=== PATIENT | female | born 1950 | race Caucasian/White ===

== ENCOUNTER 2016-09-12 20:46 | Inpatient (IN) | payer BC, MEDICARE ==
--- NOTE | ~2016-09-12 | CR72 ---
[facility] A Service of [facility] & [facility] RADIOLOGY TEXT RESULTS PATIENT: MICHI AGUIRRE LOCATION: [facility]ICCU2- : 50 UNIT #: [id number] AGE: [address]: Safia Caballero MD SEX: F ORDER DR: [id number] [facility] [address] [place], [place] [address] [id number] I MR#: [id number] Acc #: [id number] NAME: MICHI AGUIRRE : 1950 SEX: F STUDY DATE/TIME: 09/12/2016 18:28 UNIT: CEDOF ROOM: [id number] STUDY DESCRIPTION: CR Chest Single View Portable Attending Physician: Safia Caballero M.D. Ordering Physician: Dipti Yoon M.D. Primary Care Physician: Primary Care Physician No MEDICAL IMAGING REPORT This report is preliminary unless electronic signature is present PROCEDURE Portable chest, 09/12/2016 HISTORY Shortness of air for 1 week. FINDINGS Moderate cardiac enlargement. Probable calcified mitral annulus. Mild mid-right thoracic curve. Low lung volumes. No airspace infiltrates or pleural effusions. IMPRESSION Cardiac enlargement. No evidence of active disease. Dictated by... Jarrod Barros M.D. THIS IS AN ELECTRONICALLY VERIFIED REPORT Jarrod Barros M.D. at 09/12/2016 11:43 PM DFL/greyson TD: 09/12/2016 22:24 JOB #: [id number] MEDICAL IMAGING REPORT COPY
--- NOTE | ~2016-09-12 | A ---
[facility] Nutrition Therapy DATE: 09/13/16 Patient: MICHI AGUIRRE Physician: JOSE DE JESUS [facility] Room/Bed: [address], Zip: [place] [address] Admit Date: 09/12/16 Date of : [birth year] Height: 5 8 Weight: 317 144 NUTRITIONAL ASSESSMENT: REASON: Pt seen for NPO status in ICU 65 yo female admitted for hypotension, hypothermia, sepsis, EJ PMH: HTN, hypothyroid, HLD, depression Anthropometrics: Ht: 68" Wt: 143.5 kg BMI: 48.1 Labs: Na+ 147 K+ 3.3 Cl- 115 Gluc 178 BUN 154 Creat 5.2 Ca++ 8.3 Alb 2.3 AST 106 ALT 50 GFR 8.8 Meds: D5%, levophed, propofol @ 21 mL/hr, synthroid (IV), fentanyl, sodium bicarbonate, pepcid I/O & Bowel function: 2704/123, last BM Skin Integrity: Excoriation to buttocks and periarea Rash to abdominal folds and perineum Edema: 2+ BLE 1+ BUE Generalized Estimated Nutrition Needs: 8101-2176 kcals (11-14 kcals/kg ABW) 95-127 grams protein (1.5-2.0 grams/kg IBW) Assessment: Chart reviewed, events noted. Pt is intubated and sedated in the ICU. EJ and dehydration noted. Propofol is providing an additional 554 kcals from lipids at this time. Pt presents morbidly obese with a BMI of 48.1. No plans for nutrition support at this time. No family is in room to provide nutritional history. RD will provide enteral nutrition recommendations below. Dx: Inadequate protein-energy intake RT clinical condition AEB NPO status, intubated. Intervention: 1. Enteral nutrition once feasible Monitoring, Evaluation and Goals: 1. Enteral nutrition; provide >80% goal volume x 24 hrs [facility] Nutrition Therapy DATE: 09/13/16 Patient: MICHI AGUIRRE Physician: JOSE DE JESUS Address: [address] [facility] Room/Bed: [address], Zip: [place] [address] Admit Date: 09/12/16 Date of : [birth year] Height: 5 8 Weight: 317 144 2. Labs; WNL 3. Weight; prevent unintentional weight loss, promote gradual weight loss once medically feasible 4. Skin; prevent breakdown 5. GI; promote bowel regularity Recommendations: 1. Once medically feasible, would obtain enteral access and initiate enteral nutrition with Jevity 1.5 @ 20 mL/hr. Incresae by 10 mL q 8 hrs as tolerated to indicated goal below: WHILE THE PT IS RECEIVING PROPOFOL: -Increase Jevity 1.5 to 35 mL/hr + 30 mL Prostat TID to provide: 2114 kcals/ 99 grams protein/ 638 mL free H20 WHEN THE PT IS NO LONGER RECEIVING PROPOFOL: -Increase Jevity 1.5 to 55 mL/hr + 30 mL Prostat once daily to provide: 2080 kcals/ 99 grams protein/ 1003 mL free H20 Add free H20 flushes per MD orders Pt is at moderate-severe nutritional risk. RD will follow hospital course. Respectfully, TEOFILO PARIKH RD, LD [employer] [facility] cc: client file
--- NOTE | ~2016-09-12 | CR72 ---
[facility] A Service of [facility] & [facility] RADIOLOGY TEXT RESULTS PATIENT: MICHI AGUIRRE LOCATION: [address] : [birth year] UNIT #: [id number] AGE: [address]: Chad Pineda MD SEX: F ORDER DR: [id number] [facility] [address] [facility]. [place], [place] [address] [id number] I MR#: [id number] Acc #: [id number] NAME: MICHI AGUIRRE : 1950 SEX: F STUDY DATE/TIME: 09/15/2016 02:48 UNIT: [facility] ROOM: [facility] STUDY DESCRIPTION: CR Chest Single View Portable Attending Physician: Chad Pineda M.D. Ordering Physician: Chad Pineda M.D. Primary Care Physician: Primary Care Physician No MEDICAL IMAGING REPORT This report is preliminary unless electronic signature is present EXAM Portable chest 09/15 at 0248 hours INDICATIONS Dehydration. Ventilator patient. Hypotension. FINDINGS AP portable views of the chest are compared with 09/14/2016. Endotracheal tube and right IJ line remain in good position. The heart is enlarged but stable. Lung volumes remain low. There is continued infiltrate or atelectasis in the bases, unchanged. No pneumothorax. Dictated by... Amadeo Toro Jr., M.D. THIS IS AN ELECTRONICALLY VERIFIED REPORT Amadeo Toro Jr., M.D. at 09/15/2016 3:56 PM HERMINIA/raghavendra TD: 09/15/2016 06:29 JOB #: [id number] MEDICAL IMAGING REPORT COPY
--- NOTE | ~2016-09-12 | CR72 ---
[facility] A Service of [facility] & [facility] RADIOLOGY TEXT RESULTS PATIENT: MICHI AGUIRRE LOCATION: [address]- : [birth year] UNIT #: [id number] AGE: [address]: Chad Pineda MD SEX: F ORDER DR: [id number] [facility] [address] [place], [place] [address] [id number] I MR#: [id number] Acc #: [id number] NAME: MICHI AGUIRRE : 1950 SEX: F STUDY DATE/TIME: 09/14/2016 6:22 [facility]: [facility] STUDY DESCRIPTION: CR Chest Single View Portable Attending Physician: Chad Pineda M.D. Ordering Physician: Gurjit Tierney M.D. Primary Care Physician: No Primary Care Physician MEDICAL IMAGING REPORT This report is preliminary unless electronic signature is present EXAM Frontal chest, 09/14/2016. INDICATION 65-year-old female with respiratory failure, intubation, dehydration, shortness of air, ventilator patient. Hypothermia. Symptoms for 2 days. Acute renal injury. Down for unknown amount of time. Hypertension. TECHNIQUE Frontal chest compared with 09/13/2016. FINDINGS ET tube tip in good position above the lisa. Enteric tube tip can be followed to the GE junction, but no further due to technical factors. Central line from a right neck approach unchanged. The patient is rotated to the right. Cardiac silhouette enlarged. Aorta tortuous and ectatic and unchanged. Patchy interstitial and alveolar opacities in the mid and lower lung zone on the left persist. Interval improvement of opacities in the upper lung zone on the left. There is some faint atelectasis or less likely infiltrate in the right lung base. No distinct pneumothorax. IMPRESSION Tubes and lines in satisfactory position to the extent visualized. No pneumothorax. Perhaps persistent cardiomegaly. Decrease in opacities in the mid and upper lung zone on the left. No new consolidation. Size limited and rotated study. Dictated by... Maykel Samuel M.D. THIS IS AN ELECTRONICALLY VERIFIED REPORT ST[facility]. [facility] A Service of [facility] & [facility] & [facility] RADIOLOGY TEXT RESULTS PATIENT: MICHI AGUIRRE LOCATION: [facility]- : [birth year] UNIT #: [id number] AGE: [address]: Chad Pineda MD SEX: F ORDER DR: Maykel Samuel M.D. at 09/14/2016 5:45 PM KORINA/jason TD: 09/14/2016 11:52 JOB #: [id number] MEDICAL IMAGING REPORT COPY
--- NOTE | ~2016-09-12 | CR72 ---
[facility] A Service of [facility] & [facility] RADIOLOGY TEXT RESULTS PATIENT: MICHI AGUIRRE LOCATION: [address] : [birth year] UNIT #: [id number] AGE: [address]: Chad Pineda MD SEX: F ORDER DR: [id number] [facility] [address] [place], [place] [address] [id number] I MR#: [id number] Acc #: [id number] NAME: MICHI AGUIRRE : 1950 SEX: F STUDY DATE/TIME: 09/13/2016 02:32 UNIT: [facility] ROOM: [facility] STUDY DESCRIPTION: CR Chest Single View Portable Attending Physician: Safia Caballero M.D. Ordering Physician: Safia Caballero M.D. Primary Care Physician: Primary Care Physician No MEDICAL IMAGING REPORT This report is preliminary unless electronic signature is present EXAM Portable chest 09/13 02:32 INDICATIONS Shortness of air and hypotension with hyperthermia for 2 days. FINDINGS AP portable chest compared to 09/12/2016. Cardiomegaly is stable. There is some developing infiltrate or atelectasis in the left lung base and perhaps in the right upper lobe. Continued follow up recommended. No pneumothorax. Dictated by... Amadeo Toro Jr., M.D. THIS IS AN ELECTRONICALLY VERIFIED REPORT Amadeo Toro Jr., M.D. at 09/13/2016 9:59 PM HERMINIA/raghavendra TD: 09/13/2016 07:33 JOB #: [id number] MEDICAL IMAGING REPORT COPY
--- NOTE | ~2016-09-12 | OR ---
Unit #: [id number] #: [id number] Patient: MICHI AUGIRRE [id number] [address] [place], [place] [address] [id number] I MR#: [id number] NAME: MICHI AGUIRRE ROOM: [facility] Date of Procedure: 09/29/2016 Admission Date: 09/12/2016 Surgeon: Dex Bajwa M.D. : 1950 Attending Physician: Chad Pineda M.D. OPERATIVE REPORT JOB NOTE: CC: [facility] PREOPERATIVE DIAGNOSES 1. Heme-positive stools. 2. Anemia. POSTOPERATIVE DIAGNOSES 1. Heme-positive stools. 2. Anemia. PROCEDURES PERFORMED 1. Esophagogastroduodenoscopy. 2. Colonoscopy to cecum. 3. Biopsy of descending colon. ANESTHESIA Monitored anesthesia care. FINDINGS The patient was found to have mild distal esophagitis and small hiatal hernia. On colonoscopy, the patient was found to have some scattered sigmoid diverticula and some resolving mild to moderate colitis of the splenic flexure and descending colon. COMPLICATIONS None apparent. CONDITION The patient tolerated the procedure well. INDICATIONS FOR PROCEDURE The patient is a 65-year-old female, who presents at this time for evaluation of Hemoccult-positive stools and anemia. DESCRIPTION OF PROCEDURE After obtaining informed consent from the patient's [id number]-[id number] and sister, the patient was brought to the endoscopy suite. After adequate monitored anesthesia care, had the endoscope placed through the mouth into the upper esophagus under direct vision. It was advanced to the second portion of the duodenum without difficulty with the lumen always in view. The duodenum was within normal limits as was the duodenal bulb. The pylorus opened normally. The antrum appeared normal. On retroflexion Unit #: [id number] #: [id number] Patient: MICHI AGUIRRE back to the GE junction, no abnormalities were seen in the proximal third, middle third, or incisura. The patient was found to have a small hiatal hernia. On pulling back above the GE junction, there was some mild distal esophagitis, but no stenosis, stricture, or neoplasm seen. The remaining portion of the esophagus was within normal limits. Laryngeal structures were grossly normal as viewed from above. At this point in time, the colonoscope was placed through the anus and slowly advanced to the level of the cecum without difficulty with the lumen always in view. The cecum was normal as was the ileocecal valve. The ascending colon was normal as was the hepatic flexure and transverse colon. The area of the splenic flexure and descending colon had some mild to moderate colitis. It appeared to be resolving. Other than this, there was no other abnormality seen in the splenic flexure and descending colon. In the distal descending colon and sigmoid colon, there was some scattered diverticula, but no diverticulitis. The rectosigmoid and rectum were all within normal limits. On retroflexing in the rectum to the anorectal junction, the patient was found to have no significant abnormality. The scope was removed without difficulty. The patient tolerated the procedure well and went from the endoscopy suite to recovery area in stable condition. RECOMMENDATIONS Resume preop orders and medications. We have contacted Dr. Pineda given the results. We left a voicemail with the sister, Ms. Davis. The patient will most likely need a diverting colostomy at some point to protect the wound. Dictated by... Yuridia Lares/seamus TD: 09/29/2016 22:52 JOB #: [id number] CC: Jose Cardona M.D. [facility] Charlene Quezada M.D. OPERATIVE REPORT X Dex Bajwa MD X PROCEDURE OPERATIVE NOTE
--- NOTE | ~2016-09-12 | CR72 ---
[facility] A Service of [facility] & [facility] & [facility] RADIOLOGY TEXT RESULTS PATIENT: MICHI AGUIRRE LOCATION: [address] : [birth year] UNIT #: [id number] AGE: [address]: Chad Pineda MD SEX: F ORDER DR: [id number] [facility] [address] [place], [place] [address] [id number] I MR#: [id number] Acc #: [id number] NAME: MICHI AGUIRRE : 1950 SEX: F STUDY DATE/TIME: 09/16/2016 05:23 UNIT: [facility] ROOM: [facility] STUDY DESCRIPTION: CR Chest Single View Portable Attending Physician: Chad Pineda M.D. Ordering Physician: Gurjit Tierney M.D. Primary Care Physician: Primary Care Physician No MEDICAL IMAGING REPORT This report is preliminary unless electronic signature is present EXAM Portable chest, 09/16 at 05:23 hours INDICATION Shortness of air. Ventilator patient. FINDINGS AP portable chest is compared 09/15/2016. ET tube and right IJ line are in good position. Cardiomegaly and vascular congestion are again seen. There is persistent infiltrate or atelectasis in the bases that appears stable. There are also probably small effusions bilaterally. No pneumothorax. Dictated by... Amadeo Toro Jr., M.D. THIS IS AN ELECTRONICALLY VERIFIED REPORT Amadeo Toro Jr., M.D. at 09/17/2016 6:04 AM HERMINIA/tani TD: 09/16/2016 08:16 JOB #: [id number] MEDICAL IMAGING REPORT COPY
--- NOTE | ~2016-09-12 | US67 ---
[facility] A Service of [facility] & [facility] RADIOLOGY TEXT RESULTS PATIENT: MICHI AGUIRRE LOCATION: [address]- : [birth year] UNIT #: [id number] AGE: [address]: Chad Pineda MD SEX: F ORDER DR: [id number] [facility] [address] [facility] [place], [place] [address] [id number] I MR#: [id number] Acc #: [id number] NAME: MICHI AGUIRRE : 1950 SEX: F STUDY DATE/TIME: 09/19/2016 9:20 UNIT: [facility] ROOM: [facility] STUDY DESCRIPTION: Gallbladder Attending Physician: Chad Pineda M.D. Ordering Physician: Chad Pineda M.D. MEDICAL IMAGING REPORT This report is preliminary unless electronic signature is present EXAM Ultrasound abdomen, limited, 09/19/2016. HISTORY 65-year-old female hospital inpatient with elevated liver enzymes. Patient on ventilator. TECHNIQUE Contreras-scale ultrasound imaging of the right upper abdomen. FINDINGS The examination is limited by ultrasound attenuation related to patient body habitus and upper abdominal bowel gas. The gallbladder is filled with multiple large gallstones as well as dense biliary sludge. The gallbladder is non-distended. There is no adjacent fluid collection or visible gallbladder wall thickening. The extrahepatic bile duct is moderately dilated measuring up to 1.3 cm, but there is no visible intrahepatic bile duct dilatation. Echodense hepatic parenchyma suggests potential diffuse hepatic steatosis. No ascites in the right upper abdomen. Pancreas is obscured by bowel gas. Right kidney is negative with no hydronephrosis. IMPRESSION 1. The gallbladder is completely filled with multiple large shadowing gallstones and dense biliary sludge. The gallbladder is non-distended, and there is no adjacent fluid collection or visible wall thickening. 2. Dilatation of the extrahepatic bile duct to 1.3 cm. Distal bile duct and pancreas are obscured by overlying bowel gas. There is no intrahepatic bile duct dilatation. Correlate for laboratory evidence of biliary obstruction. 3. Echodense hepatic parenchyma suggesting diffuse hepatic steatosis. [facility] A Service of [facility] & [facility] RADIOLOGY TEXT RESULTS PATIENT: MICHI AGUIRRE LOCATION: [facility]- : [birth year] UNIT #: [id number] AGE: [address]: Chad Pineda MD SEX: F ORDER DR: Dictated by... Jw Leon M.D. THIS IS AN ELECTRONICALLY VERIFIED REPORT Jw Leon M.D. at 09/20/2016 8:39 AM MARI/anthony TD: 09/19/2016 17:15 JOB #: [id number] MEDICAL IMAGING REPORT COPY
--- NOTE | ~2016-09-12 | EKG ---
PATIENT: MICHI AGUIRRE UNIT #: [id number] Ventricular Rate: 118 BPM Atrial Rate: 131 BPM QRS Duration: 100 ms Q-T Interval: 294 ms QTC Calculation(Bezet): 412 ms Calculated R Wishon: 17 degrees Calculated T Wishon: 178 degrees Diagnosis Line: Atrial fibrillation with rapid ventricular Diagnosis Line: response Diagnosis Line: Nonspecific T wave abnormality Diagnosis Line: Abnormal ECG Diagnosis Line: When compared with ECG of 14-SEP-2016 06:30, Diagnosis Line: Vent. rate has increased BY 43 BPM Diagnosis Line: Confirmed by IVÁN ESTES MD ([id number]) on Diagnosis Line: 09/19/2016 10:55:19 PM INTERPRETING MD: KISHA
--- NOTE | ~2016-09-12 | CO ---
Unit #: [id number] #: [id number] Patient: MICHI AGUIRRE [id number] [facility] [place], [place] [address] [id number] I MR#: [id number] NAME: MICHI AGUIRRE ROOM: [facility] Age: 65 Sex: F Admission Date: 09/12/2016 : 1950 Attending Physician: Chad Pineda M.D. Primary Care Physician: [facility] Primary Care Physician Consultation Date: 09/18/2016 CONSULTATION REPORT REASON FOR CONSULTATION Leukocytosis and failure to thrive. HISTORY OF PRESENT ILLNESS This is a 65-year-old female that is unable to give any medical history as she is currently on a ventilator. The patient was found down by her family members with significant confusion. The patient was brought to the emergency room where she was told by the EMS staff that she was noted to be in urine and feces laying correction on the bed. Per the family, at the bedside, she also had a sewer line photo inspector rupture in her basement. The patient was acidotic. She ended up being placed on the ventilator. She was also hypotensive and now remains on pressor support. The patient also had some superficial wounds on her backside and is status post debridement. The patient, however, fails to improved as suspected and also developed some leukocytosis over the evening and ID was asked to evaluate for further management. The patient also was noted to have some elevated creatinine and some rhabdomyolysis with elevated lactic acid which is being managed by the admitting teams. The patient has been maintained on Zosyn, Flagyl and Zyvox. PAST MEDICAL HISTORY Hypothyroidism, hyperlipidemia, hypertension and degenerative joint disease. I am unaware if she has a history of diabetes. PAST SURGICAL HISTORY Unknown. SOCIAL HISTORY The patient lives alone and, per the family, she is somewhat recluse. She has no evidence per their report of any alcohol or tobacco abuse. It is noted in her H and P that there were beer cans found near her when the family found her down. ALLERGIES None. MEDICATIONS As previously stated: 1. Zosyn. 2. Flagyl. 3. Zyvox. 4. Levophed drip. For other medications, please refer to patient's MAR. Unit #: [id number] #: [id number] Patient: MICHI AGUIRRE REVIEW OF SYSTEMS Unable to obtain as the patient is currently on the ventilator. PHYSICAL EXAMINATION GENERAL APPEARANCE: This is an obese female who remains on the ventilator. Her pupils are sluggish. VITAL SIGNS: Temperature 97.7 with a T-max of 99.0. Pulse 123. Blood pressure 112/84. Respiratory rate 23. NECK: Supple. CARDIOVASCULAR: S1, S2. Regular rate and rhythm. PULMONARY: Diminished at bases with scarce rhonchi noted. ABDOMEN: Distant bowel sounds seen due to obesity of her abdomen. It is soft and nontender. EXTREMITIES: Dusking of her toes. There is no wound except on her backside which have some packing and appear to have some bleeding in nature. There is a fecal management system in place and an IJ line without any cellulitis. DIAGNOSTIC STUDIES LABORATORY: Creatinine 3.2, BUN 99, sodium 138, potassium 5.3, chloride 111, CO2 18, bilirubin 0.7, AST 193, ALT 195. CK total 1,893 which is improved from 3,123 on admission. Lactic acid was 2.1 which is improved from 4 on admission. Last procalcitonin was 1.41. WBC count 26.1, hemoglobin 8.0, hematocrit 24.3, platelets 192. Urinalysis on admission showed 25 to 50 WBCs with 2+ bacteria, negative nitrites. Blood cultures have all been negative since admission and stool culture is negative for C. diff. IMAGING: Chest x-ray shows shallow lung expansion with atelectasis but, however, clear lungs. IMPRESSION This is a 65-year-old female that was found down by her family members with confusion, noted to have some impending respiratory failure, hypotension, increased lactic acid and CK total as well as some acute kidney injury. The patient now remains on the ventilator with pressors status post pressure wound debridement. The patient has had no positive blood cultures but continues with leukocytosis. At this time, possibilities include developing or nonresolving sepsis, would like to rule out bacteremia as the patient does have lines in place, doubt pneumonia. We will need to rule out UTI. I doubt sacral wound infection; however, we will continue local wound care. We will also need to evaluate her right upper quadrant as she also had some increasing LFTs. At this time, I would recommend to check a repeat procalcitonin level, change her Zosyn to meropenem to cover for multidrug resistant infections with antifungal coverage, check a right upper quadrant ultrasound and repeat a CK total in the a.m. This case will be discussed with Dr. Jared Arias. Thank you for allowing us to participate in the care of this patient. Further recommendations will follow pending patient's clinical course. Dictated by... Jia ArcherPRadhaRRadhaNRadha for Yuridia Otero/berkley Unit #: [id number] #: [id number] Patient: MICHI AGUIRRE TD: 09/18/2016 15:05 JOB #: [id number] CONSULTATION REPORT X X CONSULTATION REPORT
--- NOTE | ~2016-09-12 | DS ---
Unit #: [id number] #: [id number] Patient: MICHI AGUIRRE [id number] [address] [address] [id number] I MR#: [id number] NAME: MICHI AGUIRRE ROOM: 555 Age: 65 Sex: F Admission Date: 09/12/2016 : 1950 Discharge Date: 10/01/2016 Attending Physician: Chad Pineda M.D. Primary Care Physician: No Primary Care Physician DISCHARGE SUMMARY DIAGNOSES ON ADMISSION 1. Acute kidney injury. 2. Dehydration. 3. Hypothermia. DIAGNOSES ON DISCHARGE 1. Hypothermia, resolved. 2. Bilateral buttock decubitus ulcer, status post debridement x2. 3. Acute kidney injury, resolved. 4. Hypothyroidism. 5. Acute rhabdomyolysis, resolved. 6. Atrial fibrillation. 7. Acute left lower extremity deep venous thrombosis. 8. Acute toxic metabolic encephalopathy. 9. Anemia, status post blood transfusion. CONSULTATIONS 1. Dr. Thomas in cardiac consultation. 2. Dr. Bajwa in surgery consultation. 3. Dr. Bautista in neurology consultation. 4. Dr. Barbour in renal consultation. 5. Dr. Arias in ID consultation. PROCEDURE 1. Patient had excisional debridement of left buttock in sacral area decubitus ulcer done. 2. Patient had a colonoscopy done which revealed resolving [id number]-nm-lbetcgxb colitis. 3. Patient had an EGD done which revealed mild distal esophagitis and small hiatal hernia. DIAGNOSTIC STUDIES LABORATORY: Patient's creatinine is 0.6, sodium 137, potassium 3.6. WBC 6, hemoglobin 9, platelet count 264,000. Patient's stool for Hemoccult was positive. HOSPITAL COURSE A 65-year-old patient was admitted at [facility] after she was found down at her home. Details are as per admission H and P. The patient was admitted in ICU and was intubated. Acute respiratory failure: The patient was gradually extubated and is doing much better. Unit #: [id number] #: [id number] Patient: MICHI AGUIRRE Left buttock and sacral decubitus ulcers. The patient underwent thorough debridement twice. Dr. Bajwa has seen patient. Patient's wounds are clean. If patient's wounds do not heal in future, she may need diverting colostomy as per Dr. Bajwa. Anemia: Patient has anemia secondary to bleeding from the decubitus ulcers. At one point, there was also concern of rectal bleeding. She is feeling much better now. Her stool was heme positive. Patient had a colonoscopy and EGD done. Atrial fibrillation: The patient was seen by cardiology in consultation. The patient has been started on Eliquis cautiously. Acute left lower extremity DVT: The patient is on Eliquis. Please make note that if patient develops bleeding, please stop Eliquis as her stools were heme positive and she had history of bleeding from decubitus ulcers. Acute toxic metabolic encephalopathy: The patient had increased confusion which is gradually improving. Today patient is comfortable, is not in any acute distress. PHYSICAL EXAMINATION VITAL SIGNS: Reveal temperature of 98.4, pulse 107 per minute, respiratory rate is 18 per minute, blood pressure is 126/80. GENERAL: Patient is confused to time. RESPIRATORY: Revealed decreased breath sounds bilaterally. There are no wheezes or crackles. HEART: Regular rate and rhythm. S1, S2. ABDOMEN: Soft, nontender. Bowel sounds are present. NEUROLOGIC: The patient is alert to person and place only. SKIN: Warm and dry. EXTREMITIES: Reveal 1+ pedal edema. RECOMMENDATIONS ON DISCHARGE Condition is stable. Activity is as tolerated. MEDICATIONS 1. Eliquis 5 mg p.o. b.i.d. 2. Tylenol 650 mg p.o. q.4 hours p.r.n. for pain. 3. Digoxin 0.125 mg p.o. daily. Kindly, do a digoxin level in one week. 4. Lopressor 50 mg p.o. b.i.d. 5. Bumex 2 mg p.o. daily. 6. Enteric coated aspirin 81 mg p.o. daily. 7. Protonix 40 mg p.o. daily. 8. Synthroid 100 mcg p.o. daily. FOLLOWUP The patient is advised to followup with primary care physician in one week and kindly repeat patient's CBC and BMP in four to five days. DISPOSITION The patient will be transferred to a rehab facility in [place] close to patient's sister. The plan has been discussed in detail with patient's sister, Rosana, who is a cardiology nurse practitioner. All of her questions were answered to her apparent satisfaction. She is aware of patient's overall poor Unit #: [id number] #: [id number] Patient: MICHI AGUIRRE. The patient will need to follow up with a hiv prevention specialist and life enrichment specialist. Please call us if there are any questions regarding this hospitalization. Dictated by... Yuridia Centeno TD: 10/01/2016 10:17 JOB #: [id number] DISCHARGE SUMMARY X Chad Pineda MD X DISCHARGE SUMMARY
--- NOTE | ~2016-09-12 | CT4 ---
[facility] A Service of [facility] & [facility] RADIOLOGY TEXT RESULTS PATIENT: MICHI AGUIRRE LOCATION: [address]- : [birth year] UNIT #: [id number] AGE: [address]: Safia Caballero MD SEX: F ORDER DR: [id number] [facility] [address] [place], [place] [address] [id number] I MR#: [id number] Acc #: [id number] NAME: MICHI AGUIRRE : 1950 SEX: F STUDY DATE/TIME: 09/12/2016 22:56 [facility]: [facility] STUDY DESCRIPTION: CT Abd and Pelv Wo Cont Attending Physician: Safia Caballero M.D. Ordering Physician: Dipti Yoon M.D. Primary Care Physician: Primary Care Physician No MEDICAL IMAGING REPORT This report is preliminary unless electronic signature is present EXAM CT abdomen and pelvis, 09/12/2016 at 22:56 INDICATION Abdominal pain. Patient found down at home today. Patient is currently nonverbal and unable to give history. TECHNIQUE Axial images were obtained through the abdomen and pelvis without contrast. Multiplanar reformats were obtained. No comparison. This CT exam was performed with one or more of the following radiation dose reduction techniques: automatic exposure control, adjustment of mA and/or kV according to patient size, and iterative reconstruction. FINDINGS ABDOMEN: Heart is enlarged. There is mitral annulus calcification, and there is some calcification in the aortic valve as well. No pleural or pericardial effusion is seen. There is some atelectasis in the lung bases. There is some streak artifact from the patient's body habitus as well as her arms. The gallbladder is poorly evaluated. There is nothing to suggest biliary obstruction. No renal or ureteral stones are seen. There is no hydronephrosis. The unenhanced solid organs are grossly normal. No bowel obstruction. Cannot exclude some mild wall thickening in the colon. This may reflect mild colitis or may simply be due to lack of luminal distension. PELVIS: There is a fat-containing umbilical hernia. The appendix is normal. The distal small bowel is normal. There is mild sigmoid diverticulosis. Shafer catheter is decompressing the bladder. The patient has a rectal tube as well. Uterus is atrophic or surgically absent. There is bilateral sacroiliitis. There is degenerative disease in the STS. [facility] A Service of [facility] & [facility] RADIOLOGY TEXT RESULTS PATIENT: MICHI AGUIRRE LOCATION: CICCU2 CICCU2-01 : [birth year] UNIT #: [id number] AGE: [address]: Safia Caballero MD SEX: F ORDER DR: lumbar spine. No fractures are identified. IMPRESSION 1. Technically degraded exam due to body habitus and the lack of contrast. 2. No hydronephrosis is seen on either side and there are no stones. 3. Limited evaluation of the gallbladder. No biliary obstruction. 4. There may be some mild wall thickening in the colon which could indicate a mild degree of colitis. The appendix is normal. There is mild sigmoid diverticulosis. 5. Shafer catheter and rectal tube in place. 6. Fat-containing umbilical hernia. 7. Cardiomegaly with aortic valve calcifications and mitral annulus calcifications. Dictated by... Amadeo Toro Jr., M.D. THIS IS AN ELECTRONICALLY VERIFIED REPORT Amadeo Toro Jr., M.D. at 09/13/2016 6:07 AM HERMINIA/greyson TD: 09/13/2016 04:21 JOB #: [id number] MEDICAL IMAGING REPORT COPY
--- NOTE | ~2016-09-12 | CR72 ---
[facility] A Service of [facility] & [facility] RADIOLOGY TEXT RESULTS PATIENT: MICHI AGUIRRE LOCATION: B 555-01 : [birth year] UNIT #: [id number] AGE: [address]: Chad Pineda MD SEX: F ORDER DR: [id number] [facility] [address] [place], [place] [address] [id number] I MR#: [id number] Acc #: [id number] NAME: MICHI AGUIRRE : 1950 SEX: F STUDY DATE/TIME: 09/23/2016 5:58 UNIT: [facility] ROOM: [facility] STUDY DESCRIPTION: CR Chest Single View Portable Attending Physician: Chad Pineda M.D. Ordering Physician: Gurjit Tierney M.D. Primary Care Physician: Primary Care Physician No MEDICAL IMAGING REPORT This report is preliminary unless electronic signature is present EXAM Portable chest INDICATION Hypotension. Follow up central venous catheter and cardiomegaly. FINDINGS Today's portable view of the chest is compared with yesterday's study. There are low lung volumes. The patient is rotated to the right. There are no definite infiltrates. There is mild cardiomegaly. The central venous catheter is stable. Dictated by... Jan Ferrara M.D. THIS IS AN ELECTRONICALLY VERIFIED REPORT Jan Ferrara M.D. at 09/23/2016 10:06 AM LOR/blake TD: 09/23/2016 08:24 JOB #: [id number] MEDICAL IMAGING REPORT COPY
--- NOTE | ~2016-09-12 | CR72 ---
[facility] A Service of [facility] RADIOLOGY TEXT RESULTS PATIENT: MICHI AGUIRRE LOCATION: [facility] 555-01 : [birth year] UNIT #: [id number] AGE: [address]: Chad Pineda MD SEX: F ORDER DR: [id number] [place] [id number] [facility]. [place], [place] [address] [id number] I MR#: [id number] Acc #: [id number] NAME: MICHI AGUIRRE : 1950 SEX: F STUDY DATE/TIME: 09/22/2016 2:21 UNIT: [facility] ROOM: [facility] STUDY DESCRIPTION: CR Chest Single View Portable Attending Physician: Chad Pineda M.D. Ordering Physician: Gurjit Tierney M.D. Primary Care Physician: No Primary Care Physician MEDICAL IMAGING REPORT This report is preliminary unless electronic signature is present EXAM Portable AP view of the chest. COMPARISON STUDIES September 20, 2015 and September 19, 2015 and September 18, 2016. INDICATION 65-year-old female with hypotension and hypothermia today. FINDINGS AND IMPRESSION There has been removal of the endotracheal tube. Right internal jugular catheter tip terminates in the SVC. Feeding tube has been removed. No evidence of pneumothorax. Evaluation of the lungs is limited by patient rotation. There is likely persistent cardiomegaly and mediastinal widening, likely not appreciably changed from comparison. There may be minimally increased band-like opacities in the left lower lobe favoring atelectasis. Otherwise the lungs appear to be clear, but again evaluation is limited by patient rotation. Skin fold artifact is seen over the left chest. No definite pleural effusion. Dictated by... Emiliano Hansen M.D. THIS IS AN ELECTRONICALLY VERIFIED REPORT Emiliano Hansen M.D. at 09/24/2016 7:39 AM ANISA/jason TD: 09/22/2016 09:31 JOB #: [id number] MEDICAL IMAGING REPORT [facility] A Service of [facility] RADIOLOGY TEXT RESULTS PATIENT: MICHI AGUIRRE LOCATION: C5 555-01 : [birth year] UNIT #: [id number] AGE: [address]: Chad Pineda MD SEX: F ORDER DR: COPY
--- NOTE | ~2016-09-12 | CR72 ---
[facility] A Service of [facility] & [facility] RADIOLOGY TEXT RESULTS PATIENT: MICHI AGUIRRE LOCATION: C5B 555-01 : [birth year] UNIT #: [id number] AGE: [address]: Chad Pineda MD SEX: F ORDER DR: [id number] [facility] [address] [address] [id number] I MR#: [id number] Acc #: [id number] NAME: MICHI AGUIRRE : 1950 SEX: F STUDY DATE/TIME: 09/29/2016 02:55 UNIT: [facility] ROOM: [facility] STUDY DESCRIPTION: CR Chest Single View Portable Attending Physician: Chad Pineda M.D. Ordering Physician: Gurjit Tierney M.D. Primary Care Physician: Primary Care Physician No MEDICAL IMAGING REPORT This report is preliminary unless electronic signature is present EXAM Chest x-ray, 09/29 at 02:55 hours INDICATION Respiratory failure, shortness of air, hypotension. FINDINGS AP portable chest is compared with 09/23/2016. Patient is rotated. A right IJ line tip is in the lower SVC level. The mediastinum remains widened. There is some mild atelectasis or infiltrate at the left base. No pneumothorax. IMPRESSION Cardiomegaly with mild left base atelectasis or infiltrate. No pneumothorax. Dictated by... Amadeo Toro Jr., M.D. THIS IS AN ELECTRONICALLY VERIFIED REPORT Amadeo Toro Jr., M.D. at 09/29/2016 9:17 PM HERMINIA/tani TD: 09/29/2016 10:18 JOB #: [id number] MEDICAL IMAGING REPORT COPY
--- NOTE | ~2016-09-12 | CR71 ---
[facility] A Service of [facility] & [facility] RADIOLOGY TEXT RESULTS PATIENT: MICHI AGUIRRE LOCATION: [address] : [birth year] UNIT #: [id number] AGE: [address]: Chad Pineda MD SEX: F ORDER DR: [id number] [facility] [address] [place], [place] [address] [id number] I MR#: [id number] Acc #: [id number] NAME: MICHI AGUIRRE : 1950 SEX: F STUDY DATE/TIME: 09/18/2016 4:01 UNIT: [facility] ROOM: [facility] STUDY DESCRIPTION: CR Chest Single View Attending Physician: Chad Pineda M.D. Ordering Physician: Gurjit Tierney M.D. MEDICAL IMAGING REPORT This report is preliminary unless electronic signature is present EXAM AP portable chest 09/18/2016. HISTORY Respiratory failure. Patient on ventilator. TECHNIQUE AP portable chest x-ray. FINDINGS Endotracheal tube, right IJ central line and Dobbhoff feeding tube remain in good position. Shallow lung expansion with mild bibasilar atelectasis. The lungs are otherwise clear. Cardiomegaly is stable. IMPRESSION 1. Support devices in good position. 2. Shallow lung expansion with mild bibasilar atelectasis. The lungs are otherwise clear. 3. Stable cardiomegaly. Dictated by... Jw Leon M.D. THIS IS AN ELECTRONICALLY VERIFIED REPORT Jw Leon M.D. at 09/18/2016 3:01 PM MARI/anthony TD: 09/18/2016 09:58 JOB #: [id number] MEDICAL IMAGING REPORT COPY
--- NOTE | ~2016-09-12 | CR72 ---
[facility] A Service of [facility] & [facility] RADIOLOGY TEXT RESULTS PATIENT: MICHI AGUIRRE LOCATION: [address] : [birth year] UNIT #: [id number] AGE: [address]: Chad Pineda MD SEX: F ORDER DR: [id number] [facility] [address]. [place], [place] [address] [id number] I MR#: [id number] Acc #: [id number] NAME: MICHI AGUIRRE : 1950 SEX: F STUDY DATE/TIME: 09/20/2016 5:07 UNIT: [facility] ROOM: [facility] STUDY DESCRIPTION: CR Chest Single View Portable Attending Physician: Chad Pineda M.D. Ordering Physician: Rao Ng M.D. Primary Care Physician: Primary Care Physician No MEDICAL IMAGING REPORT This report is preliminary unless electronic signature is present EXAM Portable chest INDICATION Hypotension. Hypothermia. Respiratory failure for the past 8 days. PROCEDURE Frontal view chest COMPARISON 09/19/2016 FINDINGS ET tube is stable. Right IJ catheter is stable. Stable cardiomegaly. Bibasilar atelectasis and pleural fluid. No pneumothorax. IMPRESSION Stable chest. Dictated by... Alex Fairbanks M.D. THIS IS AN ELECTRONICALLY VERIFIED REPORT Alex Fairbanks M.D. at 09/20/2016 4:52 PM Marline TD: 09/20/2016 10:30 JOB #: [id number] MEDICAL IMAGING REPORT COPY
--- NOTE | ~2016-09-12 | CR6 ---
[facility] A Service of [facility] & [facility] RADIOLOGY TEXT RESULTS PATIENT: MICHI AGUIRRE LOCATION: C5B 555-01 : [birth year] UNIT #: [id number] AGE: [address]: Chad Pineda MD SEX: F ORDER DR: [id number] [facility] [address] [place], [place] [address] [id number] I MR#: [id number] Acc #: [id number] NAME: MICHI AGUIRRE : 1950 SEX: F STUDY DATE/TIME: 09/28/2016 UNIT: [facility] ROOM: [facility] STUDY DESCRIPTION: CR Abdomen Portable Sng View Attending Physician: Chad Pineda M.D. Ordering Physician: Chad Pineda M.D. Primary Care Physician: Primary Care Physician No MEDICAL IMAGING REPORT This report is preliminary unless electronic signature is present EXAM KUB 09/28 at 23:40 INDICATIONS Feeding tube placement. FINDINGS Supine view of the abdomen was obtained. Tip of a flexible feeding tube is in the antrum of the stomach. Dictated by... Amadeo Toro Jr., M.D. THIS IS AN ELECTRONICALLY VERIFIED REPORT Amadeo Toro Jr., M.D. at 09/29/2016 9:16 PM HERMINIA/kori TD: 09/29/2016 09:57 JOB #: [id number] MEDICAL IMAGING REPORT COPY
--- NOTE | ~2016-09-12 | CO ---
Unit #: [id number] #: [id number] Patient: MICHI AGUIRRE [id number] [facility] [address] [facility]. [place], [place] [address] [id number] I MR#: [id number] NAME: MICHI AGUIRRE ROOM: [facility] Age: 65 Sex: F Admission Date: 09/12/2016 : 1950 Attending Physician: Chad Pineda M.D. Consultation Date: 09/13/2016 CONSULTATION REPORT JOB NOTE: CC: PRIMARY CARE DOCTOR, [facility]. REASON FOR CONSULTATION Atrial fibrillation, questionable onset and hypotension. HISTORY OF PRESENT ILLNESS This is a 65-year-old white female with a known history reported from family having hypertension, hyperlipidemia, hypothyroidism, depression, is brought into the hospital by EMS after her sister found her in her home very confused, disoriented, weak and lethargic. The patient is lethargic and hard to arouse. The patient was covered in urine and stool and in disarray. According to the sister, who gave a report to the staff that she was last seen by family members about a month ago. Her sister had been trying to call for over a week. She finally went to the home and was unable to get in, and so she called the fire department who broke in. The house was in disarray. She was found on the bed awake, but confused on saying yes to questions. She was covered in urine and stool. There were several beer cans found by the police around the patient's bed. However, the sister did not think she has a history of alcohol abuse. She does have a history of depression. There is no indication by the family or the patient reported any chest pain, pain in her neck, bilateral jaws, shoulders, arms, or elbow. No reported palpitations. In the emergency room, the patient's blood pressure was found to be systolic in the 80s, her temperature was 92.4, she is having significant diarrhea and she required a fecal management system. She was found to be profoundly dehydrated with acute kidney injury, elevated lactic acid level, hypernatremia, metabolic acidosis. She had some decubitus on her right buttock, some superficial abrasions and wounds in the perineal area. She was started on resuscitation with IV fluids and IV fluids contain some bicarb and she had to be started on Levophed for hypotension. Chest x-ray showed cardiomegaly. Head CT showed nothing acute, some mild chronic bilateral ischemic changes and an old right lacunar infarct. EKG showed atrial fibrillation, nonspecific ST-T wave abnormalities. The patient's BUN was 153 with a creatinine of 5.6, eGFR of 8.1, potassium was 3.8, sodium 151. Cardiac enzymes were negative except the CK total of 3892. TSH was found to be 41.07. Alcohol level less than 5. WBCs 21.6. Urinalysis shows 1+ leukocyte esterase, 2+ protein, 1.0 urobilinogen, otherwise unremarkable. Blood cultures obtained and was started on antibiotics as well as IV fluids for resuscitation efforts. Cardiology has been consulted to assist with evaluation and management of her atrial fibrillation and hypertension. Unit #: [id number] #: [id number] Patient: MICHI AGUIRRE PAST MEDICAL HISTORY 1. Hypertension. 2. Hyperlipidemia. 3. Hypothyroidism. 4. Degenerative joint disease. 5. Depression. 6. Questionable alcohol use. 7. Morbid obesity, BMI 48 with weight of 317 pounds. PAST SURGICAL HISTORY Unknown at this time. HOME MEDICATIONS Some thyroid medication, but dosage unavailable, supposed to be taking Synthroid, but according to the sister, there was no medications found at her home at this point. ALLERGIES No known drug allergies. SOCIAL HISTORY The patient lives in her home alone. Reports a remote history of tobacco use and usually was not drinking alcohol, but there was found to have several beer cans around the patient when they found her. No history of illicit drug abuse in the past according to the sister. FAMILY HISTORY Hypothyroidism, otherwise unremarkable according to the sister. REVIEW OF SYSTEMS See details in HPI. PHYSICAL EXAMINATION GENERAL: Ms. Aguirre is a 65-year-old white female. She is very lethargic, but can be aroused, opens her eyes. VITAL SIGNS: On Levophed, blood pressure is 102/75, heart rate 80, respirations 20, temperature 97.5, O2 saturations 100% on 2 L. NECK: Trachea midline. No thyromegaly or lymphadenopathy. Normal carotid upstrokes. No jugular venous distention. HEART: S1, S2. No clicks, murmurs or rubs. LUNGS: Diminished. ABDOMEN: Obese, soft. Positive bowel sounds present. EXTREMITIES: Pedal pulses are palpable. Trace pedal edema. DIAGNOSTIC STUDIES LABORATORY RESULTS: ABGs this morning, pH is 7.309, pCO2 of 38.0, pO2 of 416.0, HCO3 19.3, O2 saturation is 99.9%, FiO2 100%, and on 3 L. glucose is 178, BUN 154, creatinine 5.2, eGFR is 8.8. Sodium was 147, potassium 3.3, chloride 115, CO2 of 18, calcium is 8.3, total protein 6.1, albumin 2.3, bilirubin total 1.3, AST is 106, ALT is 50, alk phos is 60, CK total is 3892. BNP 66. Ammonia level is 29. Lactic acid is 2.1. TSH is 41.07. Free T4 is 0.71. Alcohol level is less than 5. Initial cardiac enzymes; CK-MB is greater than 80, troponin is less than 0.05. Repeat enzymes; CK total is 3892, MB is 119.2, percentage of MB 3.1, troponin 0.05. WBC 21.6, hemoglobin 12.1, hematocrit 38.2, and platelets is 257. Urine tox screen is negative. Urinalysis; 1+ leukocyte esterase, 2+ protein, 1.0 urobilinogen. Stool and blood cultures are pending. Unit #: [id number] #: [id number] Patient: MICHI AGUIRRE IMAGING STUDIES: Chest x-ray shows lower lung volumes with stable cardiomegaly and torturous aorta, mild pulmonary vascular prominence. No definite edema, effusion or pneumothorax. Chest x-ray on 09/13/2016 shows increasing opacities in the left lung may reflect worsening atelectasis or less likely faint infiltrate. No new effusion. She did have a CT of abdomen and pelvis, which showed no hydronephrosis, no biliary obstruction, could be even a degree of colitis and some mild diverticulosis. CT of the head without contrast did not find anything acute. CARDIOVASCULAR STUDIES: EKG shows atrial fibrillation with a ventricular rate of 78 beats per minute and there was some ST-T wave abnormalities in anterolateral leads, left ventricular hypertrophy, poor R-wave progression. IMPRESSION 1. Altered mental status. 2. Questionable acute gastroenteritis. 3. Atrial fibrillation, ?duration onset. 4. Hypotension, on pressors. 5. Acute kidney injury. 6. Hypothyroidism. 7. Hypothermia. 8. Rhabdomyolysis. 9. History of hypertension, hyperlipidemia. 10. Depression. 11. Reformed smoker. 12. Questionable alcohol abuse. 13. Degenerative joint disease. 14. Morbid obesity, BMI is 48, weight is 317 pounds. 15. Questionable nicotine abuse. 16. Questionable alcohol abuse. 17. This patient has cellulitis of the abdominal wall and perineal and buttocks wounds. 18. Hypokalemia. PLAN 1. Cardiology consult to assist with evaluation and management. 2. The patient is on IV fluids and Levophed for resuscitation efforts. She is fairly arousable, but seems to be very lethargic. She is on the sepsis protocol, which is already being followed. We will increase her anticoagulation to 1 mg/kg subcu daily and that is renal dosing. 3. Obtain a 2D echo to evaluate her LV function and valves for comparison. 4. The patient's heart rate is fairly controlled. She is not on any beta-blockers or calcium channel blockers. 5. Nephrology has been consulted for management and treatment of her acute kidney injury. 6. Treatment of probable diarrhea from some type of colitis. Stool cultures are pending. 7. Dr. Schwarz from Psychiatric has made recommendations on wound care. 8. Pulmonology per her wireline supervisor's concern for aspiration. Plans are for patient to have a Dobbhoff tube. 9. The patient's potassium is being supplemented. We will check her electrolytes tomorrow. Dr. Barbour of nephrology has ordered some albumin for four doses and he ordered normal saline 500 mL bolus today. The patient is on IV antibiotics. 10. Increase her anticoagulation to Lovenox 1 mg/kg subcu daily and Unit #: [id number] #: [id number] Patient: MICHI AGUIRRE monitor her CBC closely. 11. Obtain a 2D echo to evaluate LV function and valves. 12. We will try to ask questions to the sister to see if she has ever had any heart issues or had any cardiac workup and we will obtain those records. 13. Further recommendations pending per Dr. Quezada. Thank you very much for allowing us to assist in her care. Dictated by... Saeed Vann/modl TD: 09/14/2016 05:22 JOB #: [id number] CONSULTATION REPORT X Nora Hernandez APRN CONSULTATION REPORT
--- NOTE | ~2016-09-12 | CO ---
Unit #: [id number] #: [id number] Patient: MICHI AGUIRRE [id number] [facility] [address] [facility]. [place], [place] [address] [id number] I MR#: [id number] NAME: MICHI AGUIRRE ROOM: [facility] Age: 65 Sex: F Admission Date: 09/12/2016 : 1950 Attending Physician: Chad Pineda M.D. Primary Care Physician: No Primary Care Physician Consultation Date: 09/14/2016 CONSULTATION REPORT REASON FOR CONSULTATION Decreased level of consciousness. PATIENT IDENTIFICATION This is a 65-year-old white female who was evaluated from ICU-1 at [facility]. SOURCE OF INFORMATION Medical record as the patient is intubated and has some sedation. PROBLEM LIST 1. Acute kidney injury. 2. Dehydration. 3. Hyponatremia. 4. Hypothermia. 5. Hypothyroidism. 6. She was found down and the down time is not known. 7. She does have history of hypertension, hyperlipidemia, and degenerative joint disease. HISTORY OF PRESENT ILLNESS This is a 65-year-old female with chronic hypertension, hypothyroidism, and hyperlipidemia who is private and lives on her own but her family was unable to contact her. There was probably some contact over the phone about a week before she was unable to be contacted, so the family went in there and couldn't get her to open the door, so they called the fire department and broke in. The patient was found in the bed, half on and half off, awake and confused, just mumbling. She was covered in urine and stool. She had a decubitus ulcer. There were several beer cans found on the (1) but I am not sure if there was any alcohol related issue. The patient's admitting diagnoses were the addition of acute kidney injury, hypothermia, and hypotension, sacral perineal decubitus, and excoriation, diarrhea, metabolic acidosis, rhabdomyolysis, atrial fibrillation, acute kidney injury, and hypotension. She is being taken care of. She is still being sedated with sedation medication. Earlier, there was the possibility that she was following commands but lately only responds to painful stimuli. She is obviously nonverbal, so neurology was finally consulted to help. Once she came in, blood pressure was 80s over 50s, temperature 92.4. She has improved some. Temperature is 98.1, pulse 79, respirations 24, blood pressure 101/55. Her labs were abnormal. When she came in, her pH was 7.31, pCO2 was 33, pO2 was 88.6. Her BUN was 153, creatinine was 5.6. Her sodium was 151. Calcium was 9.8. AST was 98, ALT was 58, amylase was 77, lipase was 111. CK was 3128. It has gone up some to 3892. Troponin was 0.05, went up to 0.88. Lactic was 4. TSH was Unit #: [id number] #: [id number] Patient: MICHI AGUIRRE 41.07. Her white count was 18.8. Urinalysis initially did not show much but repeat study showed 25-50 WBCs, 2+ bacteria, leukocyte esterase 2+. Urine drug screen was negative. Alcohol was less than 5. She had a head CT done which was reported as unremarkable. Since admission, no witnessed seizures. Nothing suggesting HABITAT BIOLOGIST infection type picture. Nothing suggesting major stroke but the initial CT was unremarkable. No prior history of epilepsy, migraine, seizures, stroke, or TIA. PAST MEDICAL HISTORY As discussed above. PAST SURGICAL HISTORY Further details not known. ALLERGIES None. HOME MEDICATIONS Synthroid, other than that I do not have any information. FAMILY HISTORY History of hypothyroidism. SOCIAL HISTORY The patient lives alone. Remote history of tobacco use. Nothing suggesting alcohol or drug use. REVIEW OF SYSTEMS Not possible because of the patient's present state. PHYSICAL EXAMINATION VITAL SIGNS: Temperature is 98.1, pulse 79, respiratory rate 24, blood pressure 101/55, O2 saturations are 98%, weight 330 pounds. NEUROLOGIC: The patient is intubated with some sedation. She is obviously nonverbal. She is not following commands. CRANIAL NERVES: I really did not see any good response with visual threats. The pupils are sluggish, reactive, size about 1.5 mm. I did not see any ptosis. I did not see any nystagmus. Extraocular movements are questionable. Sensation on the face and scalp is present. Hearing is questionable. Tongue was midline. I could not visualize the oropharynx or uvula. Head turning was somewhat seen spontaneously. MOTOR: She responds to painful stimuli. She is in restraints. At least 2/5 movement was seen. SENSORY: Responds to pain and seems to grimace. I could not get any reflexes. Toes are moot. GAIT/COODRINATION: Could not be evaluated. DIAGNOSTIC STUDIES Labs and imaging studies reviewed as discussed. IMPRESSION Likely multifactorial toxic and metabolic encephalopathy. PLAN I cannot see if there is any particular primary reason why this all happened. Could it be just plain dehydration and laying down and some Unit #: [id number] #: [id number] Patient: MICHI AGUIRRE sort of infection. Could this be a primary neurologic issue that led to this. There is nothing suggesting seizure or HABITAT BIOLOGIST infection. I would like to repeat CT or MRI and will go from there. Once the sedation is decreased, we can do further evaluation. What if it is a cognitive condition? She has been known to have depression. Does she have dementia or any other primary neurologic Condition. Since we have not seen any evidence she is having seizures, so I would refrain from adding more medications. The focus is airway breathing and circulation and fixing metabolic problems. In the meantime if I find any primary neurologic issues, then that will be evaluated and treated accordingly. Obviously since she was found the way she was, there is nothing I can do for like TPA or intervention dodge, but will do noninvasive testing like MRI and carotid Dopplers and see how things go. I may end up doing EEG and if needed LP would be considered but the primary focus right now is airway breathing and circulation and metabolic management. I will followup and I have discussed the case briefly with the team. I will keep you informed. Call me for any other questions, issues, or concerns. I have also talked briefly to the patient's family. I believe that was her brother. Dictated by... Yuridia Torres/jarrell TD: 09/14/2016 11:07 JOB #: [id number] CONSULTATION REPORT X Beatrice Bautista MD CONSULTATION REPORT
--- NOTE | ~2016-09-12 | EKG ---
PATIENT: MICHI AGUIRRE UNIT #: [id number] Ventricular Rate: 78 BPM Atrial Rate: 357 BPM QRS Duration: 112 ms Q-T Interval: 392 ms QTC Calculation(Bezet): 446 ms Calculated R [place]: 23 degrees Calculated T [place]: -170 degrees Diagnosis Line: Atrial fibrillation Diagnosis Line: Non-specific intra-ventricular conduction delay Diagnosis Line: T wave abnormality, consider inferior ischemia or Diagnosis Line: digitalis effect Diagnosis Line: T wave abnormality, consider anterolateral Diagnosis Line: ischemia or digitalis effect Diagnosis Line: Abnormal ECG Diagnosis Line: When compared with ECG of 12-SEP-2016 18:39, Diagnosis Line: (unconfirmed) Diagnosis Line: T wave inversion now evident in Anterolateral Diagnosis Line: leads Diagnosis Line: QT has shortened Diagnosis Line: Confirmed by IVÁN ESTES MD ([id number]) on Diagnosis Line: 09/13/2016 10:55:06 PM INTERPRETING MD: KISHA
--- NOTE | ~2016-09-12 | FU ---
[facility] Nutrition Therapy DATE: 09/21/16 Patient: MICHI AGUIRRE Physician: JOSE DE JESUS Address: [address] [place] [address] Room/Bed: [address], Zip: [place] [address] Admit Date: 09/12/16 Date of : [birth year] Height: 5 8 Weight: 343 156 NUTRITION MONITORING/FOLLOW-UP: Reason: Enteral nutrition follow-up Anthropometrics: Wt: 156 kg Labs: Glucose 114, BUN 75, AST 78, ALT 84, Mg 1.5, GFR 40.1, Na/K/Phos WNL Meds: Phoslo, Versed, Fentanyl, Phenergan/Zofran, Merrem, Levophed, IV Synthroid I&O's: 3047/6030, last BM 09/20 (diarrhea per FMS) Skin: Excoriation buttocks/lillian area Edema: Generalized-2+ noted Estimated Nutrition Needs: 4207-4586 kcals per day 95-127 g protein per day Fluids consistent with kcal needs or per MD Assessment: Chart reviewed, events noted. Patient opens eyes, moves all extremities, remains on vent at this time. CPAP trials yesterday, likely to wean within 1-2 days. Renal function improving, needs diuretics per RN. MD changed EN from Jevity 1.5 to Nepro at same rate on 09/19 over the weekend, also getting daily Prostat, 5 ml residuals noted, patient tolerating feeds. Unable to determine % intake from pump history at this time as the pump says "holding error." Presume previous nutrition goals met, note weight increase likely 2/2 fluid. Nutrition dx resolved with EN at goal, see new nutrition dx and recs below. Dx: Inadequate protein energy intake r/t clinical condition AEB NPO, intubated - RESOLVED New nutrition Dx: Excessive enteral nutrition infusion r/t formula change AEB current EN regimen providing 2476 kcals (119% estimated kcal needs). Intervention: Decrease Nepro and increase Prostat (See RD recs below) Monitoring, Evaluation and Goals: SOME MET 1. EN to provide 80-100% of estimated nutrition needs. 2. Gradual weight loss towards a healthy BMI range. 3. Labs WNL. Monitor: Per protocol, criteria to determine if above goals met [facility] Nutrition Therapy DATE: 09/21/16 Patient: MICHI AGUIRRE Physician: JOSE DE JESUS Address: [address] [place] [address] Room/Bed: [address], Zip: [place] [address] Admit Date: 09/12/16 Date of : [birth year] Height: 5 8 Weight: 343 156 Recommendations: 1. Please decrease current enteral nutrition rate with Nepro to 40 ml/hr to avoid overfeeding, formula changed over the weekend and is meeting 119% of the patients estimated kcal needs at current rate of 55 ml/hr. Increase Prostat to 30 ml TID instead of just once daily to meet protein needs. This nutrition regimen will provide 2028 kcals, 123 g protein and 701 ml water. Free water flushes per - RD recommends 185 ml q 4 hrs. 2. Monitor lytes- if Phos/K+ remain WNL can change back to Jevity 1.5 goal of 55 ml/hr + daily Prostat. 3. If extubated advance to healthy heart diet per DRIED YEAST SUPERVISOR. Status: Moderate nutrition risk Respectfully, Dona Whitney RD, LD [employer] [facility] cc: client file
--- NOTE | ~2016-09-12 | CR72 ---
[facility] A Service of [facility] RADIOLOGY TEXT RESULTS PATIENT: MICHI AGUIRRE LOCATION: [address] : [birth year] UNIT #: [id number] AGE: [address]: Chad Pineda MD SEX: F ORDER DR: [id number] [facility] [address] [facility] [place], [place] [address] [id number] I MR#: [id number] Acc #: [id number] NAME: MICHI AGUIRRE : 1950 SEX: F STUDY DATE/TIME: 09/19/2016 4:47 UNIT: [facility] ROOM: [facility] STUDY DESCRIPTION: CR Chest Single View Portable Attending Physician: Chad Pineda M.D. Ordering Physician: Rao Ng M.D. Primary Care Physician: Primary Care Physician No MEDICAL IMAGING REPORT This report is preliminary unless electronic signature is present EXAM Portable AP view of the chest COMPARISON September 18, 2016, September 16, 2016, September 15, 2016 INDICATIONS 65-year-old female with respiratory failure since September 12, 2016. Current ventilatory support. FINDINGS/IMPRESSION Feeding tube not traced below the level of the stomach where it passes off the bottom aspect of the image. Endotracheal tube is adequately positioned with the tip 4.6 cm above the lisa. Right internal jugular catheter tip terminates in the lower SVC. No evidence of pneumothorax. There appears to be new small right pleural effusion and there is increasing interstitial prominence throughout the lungs in the setting of cardiomegaly. There is also cephalization of pulmonary vasculature and these findings likely represent mild interstitial edema. Dictated by... Emiliano Hansen M.D. THIS IS AN ELECTRONICALLY VERIFIED REPORT Emiliano Hansen M.D. at 09/22/2016 7:00 AM Jami TD: 09/19/2016 10:44 JOB #: [id number] MEDICAL IMAGING REPORT COPY
--- NOTE | ~2016-09-12 | CR6 ---
[facility] A Service of [facility] RADIOLOGY TEXT RESULTS PATIENT: MICHI AGUIRRE LOCATION: [facility]2 [facility]2 : [birth year] UNIT #: [id number] AGE: [address]: Chad Pineda MD SEX: F ORDER DR: [id number] [facility] [address] [facility]. [place], [place] [address] [id number] I MR#: [id number] Acc #: [id number] NAME: MICHI AGUIRRE : 1950 SEX: F STUDY DATE/TIME: 09/14/2016 6:24 UNIT: [facility]CU2 ROOM: [facility] STUDY DESCRIPTION: CR Abdomen Portable Sng View Attending Physician: Chad Pineda M.D. Ordering Physician: Ed Rush Davis M.D. Primary Care Physician: No Primary Care Physician MEDICAL IMAGING REPORT This report is preliminary unless electronic signature is present EXAM Frontal abdomen, 09/14/2016. INDICATION 65-year-old female with abdominal distension. Abdominal pain symptoms for 2 days. TECHNIQUE Frontal abdomen was performed. COMPARISONS 09/13/2016, 1020 hours FINDINGS Enteric tube tip is at the level of the distal body stomach/gastric antrum. Shafer catheter temperature probe projects over the pelvis. There is degenerative change in the lumbar spine. No new dilated air-filled loops of bowel are seen. Curvilinear air density structure in the left mid abdomen, likely represents loop of small bowel. Air related to the patient's pannus projects over the upper abdomen on both projections. The entire abdomen is not included in the field of view. There is overlying clothing artifact. IMPRESSION 1. Enteric tube tip is at the level of the distal body/gastric antrum of the stomach. 2. No new dilated air-filled loops of bowel are seen. Interval decrease in gaseous distension of the stomach. Dictated by... Maykel Samuel M.D. [facility] A Service [facility] RADIOLOGY TEXT RESULTS PATIENT: MICHI AGUIRRE LOCATION: C[facility]2 C[facility]CU2 : [birth year] UNIT #: [id number] AGE: [address]: Chad Pineda MD SEX: F ORDER DR: THIS IS AN ELECTRONICALLY VERIFIED REPORT Maykel Samuel M.D. at 09/14/2016 5:45 PM KORINA/jason TD: 09/14/2016 11:45 JOB #: [id number] MEDICAL IMAGING REPORT COPY
--- NOTE | ~2016-09-12 | EKG ---
PATIENT: MICHI AGUIRRE UNIT #: [id number] Ventricular Rate: 63 BPM Atrial Rate: 43 BPM QRS Duration: 116 ms Q-T Interval: 536 ms QTC Calculation(Bezet): 548 ms Calculated R [place]: -4 degrees Calculated T [place]: -14 degrees Diagnosis Line: Atrial fibrillation Diagnosis Line: Left ventricular hypertrophy with QRS widening Diagnosis Line: Nonspecific ST and T wave abnormality Diagnosis Line: Prolonged QT Diagnosis Line: Abnormal ECG Diagnosis Line: No previous ECGs available Diagnosis Line: Confirmed by IVÁN ESTES MD ([id number]) on Diagnosis Line: 09/13/2016 10:49:33 PM INTERPRETING MD: KISHA
--- NOTE | ~2016-09-12 | CR7 ---
[facility] A Service of [facility] RADIOLOGY TEXT RESULTS PATIENT: MICHI AGUIRRE LOCATION: C5B 555 : 50 UNIT #: [id number] AGE: [address]: Chad Pineda MD SEX: F ORDER DR: [id number] [facility] [address]. [place], [place] [address] [id number] I MR#: [id number] Acc #: [id number] NAME: MICHI AGUIRRE : 1950 SEX: F STUDY DATE/TIME: 09/28/2016 14:42 UNIT: [facility] ROOM: [facility] STUDY DESCRIPTION: CR Abdomen Single AP View Attending Physician: Chad Pineda M.D. Ordering Physician: Chad Pineda M.D. Primary Care Physician: Primary Care Physician No MEDICAL IMAGING REPORT This report is preliminary unless electronic signature is present EXAM Frontal abdomen, 09/28/2016 INDICATION 65-year-old female with hypothermia and stomach and abdominal pain today. Dobbhoff tube placement. TECHNIQUE Frontal abdomen was performed and compared with 09/14/2016. FINDINGS The patient is rotated to the right. There is a Dobbhoff-type feeding tube present and the tip is below the diaphragm at the level of the gastric fundus/proximal body of the stomach. Shafer catheter temperature probe also noted. There is gaseous distension of small and large bowel. Chronic inferior rib fracture on the left. IMPRESSION The tip of the Dobbhoff tube is at the expected level of the gastric fundus/proximal body stomach. Dictated by... Maykel Samuel M.D. THIS IS AN ELECTRONICALLY VERIFIED REPORT Maykel Samuel M.D. at 09/29/2016 7:36 AM KORINA/greyson TD: 09/28/2016 23:29 JOB #: [id number] [facility] A Service of [facility] RADIOLOGY TEXT RESULTS PATIENT: MICHI AGUIRRE LOCATION: C5B : 50 UNIT #: [id number] AGE: [address]: Chad Pineda MD SEX: F ORDER DR: MEDICAL IMAGING REPORT COPY
--- NOTE | ~2016-09-12 | CR6 ---
[facility] A Service of [facility] RADIOLOGY TEXT RESULTS PATIENT: MICHI AGUIRRE LOCATION: C5B 555-01 : 50 UNIT #: [id number] AGE: [address]: Chad Pineda MD SEX: F ORDER DR: [id number] [facility] [address] [facility]. [place], [place] [address] [id number] I MR#: [id number] Acc #: [id number] NAME: MICHI AGUIRRE : 1950 SEX: F STUDY DATE/TIME: 09/29/2016 02:55 UNIT: [facility] ROOM: [facility] STUDY DESCRIPTION: CR Abdomen Portable Sng View Attending Physician: Chad Pineda M.D. Ordering Physician: Chad Pineda M.D. Primary Care Physician: Primary Care Physician No MEDICAL IMAGING REPORT This report is preliminary unless electronic signature is present EXAM KUB 09/29/2016 at 0255 INDICATIONS Feeding tube placement. FINDINGS Supine view of the abdomen was obtained. Tip of Dobbhoff feeding tube is positioned in the body of the stomach. Dictated by... Amadeo Toro Jr., M.D. THIS IS AN ELECTRONICALLY VERIFIED REPORT Amadeo Toro Jr., M.D. at 09/29/2016 9:16 PM HERMINIA/raghavendra TD: 09/29/2016 10:15 JOB #: [id number] MEDICAL IMAGING REPORT COPY
--- NOTE | ~2016-09-12 | CT71 ---
[facility] A Service of [facility] RADIOLOGY TEXT RESULTS PATIENT: MICHI AGUIRRE LOCATION: CICCU2 CICCU08-25 : 50 UNIT #: [id number] AGE: [address]: Safia Caballero MD SEX: F ORDER DR: [id number] [facility] [address]. [place], [place] [address] [id number] MR#: [id number] Acc #: [id number] NAME: MICHI AGUIRRE : 1950 SEX: F STUDY DATE/TIME: 09/12/2016 20:16 UNIT: [facility] ROOM: [id number] STUDY DESCRIPTION: CT Head Wo Contrast Attending Physician: Safia Caballero M.D. Ordering Physician: Dipti Yoon M.D. Primary Care Physician: Primary Care Physician No MEDICAL IMAGING REPORT This report is preliminary unless electronic signature is present EXAM CT brain without contrast HISTORY Unresponsive for 1 week. Decreased mental status. TECHNIQUE This CT exam was performed with one or more of the following radiation dose reduction techniques: Automatic exposure control, adjustment of mA and/or kV according to patient size, and iterative reconstruction. FINDINGS CT brain without contrast demonstrates mild chronic ischemic changes in the periventricular white matter bilaterally. Small, chronic lacunar infarct in the right lentiform nucleus. No intracranial hemorrhage, mass or edema is identified. Prominent and tortuous basilar artery is likely incidental. IMPRESSION No acute findings. Mild chronic ischemic changes in the deep white matter bilaterally and small chronic lacunar infarct in the right lentiform nucleus. Dictated by... Jarrod Barros M.D. THIS IS AN ELECTRONICALLY VERIFIED REPORT Jarrod Barros M.D. at 09/12/2016 11:45 PM DFL/psc TD: 09/12/2016 23:07 JOB #: [id number] [facility] A Service [facility] RADIOLOGY TEXT RESULTS PATIENT: MICHI AGUIRRE LOCATION: CICCUKarrie CICCU08-25 : 50 UNIT #: [id number] AGE: [address]: Safia Caballero MD SEX: F ORDER DR: MEDICAL IMAGING REPORT COPY
--- NOTE | ~2016-09-12 | FU ---
[facility] Nutrition Therapy DATE: 09/28/16 Patient: MICHI AGUIRRE Physician: JOSE DE JESUS [facility] Room/Bed: [address] [place] [address], Zip: [place] [address] Admit Date: 09/12/16 Date of : 50 Height: 5 8 Weight: 314 142.8 NUTRITION MONITORING/FOLLOW-UP: Reason: Nutrition follow-up Anthropometrics: current wt: 142.8 kg Labs: BUN 30, POC 73-80 Meds: Lactated ringers, PPI, Bumetanide, Synthroid GI: LBM 3/6 (FMS) Skin: Left necrotic buttock/sacral wound Edema generalized-3+ Estimated Nutrition Needs: Increased protein needs Assessment: Chart reviewed, events noted. Patient previously on mechanical soft diet with NTL (09/26) per ACCOUNT DIRECTOR, had wound debridement yesterday, diet clear liquids (nectar thick) today. Patient is awake and responsive but somewhat confused and pauses when answering questions. She is not appropriate for full RD interview at this time. She is also not appropriate for ONS (Ensure clear) at this time due to need to thicken. Previous nutrition goals no longer relevant, nutrition dx resolved, see new diagnosis. Will continue to follow for tolerance of diet advancement and further nutritional needs. Note patient is morbidly obese. Dx: Excessive enteral nutrition infusion r/t formula change AEB current EN regimen providing 2476 kcals (119% estimated needs). - RESOLVED, NO LONGER RELEVANT New nutrition Dx: Inadequate protein energy intake r/t diet not yet advanced AEB clear liquid diet. Intervention: Diet advancement per ACCOUNT DIRECTOR Monitoring, Evaluation and Goals: PREVIOUS GOALS NO LONGER RELEVANT New goals: 1. Tolerance of diet advancement with minimal c/o N/V/D. 2. Improvement in chewing/swallow function. 3. Promote wound healing. Monitor: Per protocol, criteria to determine if above goals met [facility] Nutrition Therapy DATE: 09/28/16 Patient: MICHI AGUIRRE Physician: JOSE DE JESUS Address: [address] [facility] Room/Bed: [address] [place] [address], Zip: [place] [address] Admit Date: 09/12/16 Date of : [birth year] Height: 5 8 Weight: 314 142.8 Recommendations: Advance diet as tolerated per ACCOUNT DIRECTOR. Do not give oral supplements while on clear liquid/nectar thick diet. Once diet advances beyond clear liquids can order Nepro or Magic Cup BID if patient's PO intake is inadequate (both appropriate for nectal thick liquids). She does have increased protein needs related to wound healing requirements. RD will continue to follow Status: Moderate nutrition risk Respectfully, Dona Whitney, ANDREA, LD [facility] Nutrition[facility] cc: client file
--- NOTE | ~2016-09-12 | FU ---
[facility] Nutrition Therapy DATE: 09/16/16 Patient: MICHI AGUIRRE Physician: JOSE DE JESUS Address: [address] [place] [address] Room/Bed: [address], Zip: [place] [address] Admit Date: 09/12/16 Date of : [birth year] Height: 5 8 Weight: 339 153.8 NUTRITION MONITORING/FOLLOW-UP: Reason: Enteral nutrition follow-up Admitting Dx: 65 y/o female admitted with hypotension, hypothermia, sepsis, EJ, dehydration, unresponsive Anthropometrics: Ht: 68", admission wt: 143.5 kg, current wt: 153.8 kg, BMI: 48.1 Labs: Na 147, BUN 99, Creat 2.6, GFR 19.6, Phos 4.7 (09/14), Glucose POC 93 Meds: IV Abx, Pepcid, IV Synthroid I&O's: 9292/2225, last BM 09/15 per FMS Skin: Excoriation buttocks/lillian area, rash abdominal folds/perineum Edema: BLE/BUE 2+, generalized Estimated Nutrition Needs: 8724-2057 kcals per day (11-14 kcals/kg admission wt) 95-127 g protein per day (1.5-2.0 g/kg IBW) Fluids consistent with kcal needs or per MD Current EN regimen: Jevity 1.5 @ 35 ml/hr with Prostat TID (goal with Propofol) Assessment: Chart reviewed, events noted. Patient is currently off the floor in OR for wound debridement, RD unable to check pump history to assess EN goal volume. EN started with Jevity 1.5 on 09/14 @ 10 ml/hr with Prostat as ordered, increased to goal that afternoon (35 ml/hr while on Propofol) and feeds were at goal all day yesterday. Sedation turned off last PM, RD will write new recs and order to update EN order to reflect these recs. RN states the patient will likely be extubated today. Renal function is improving, patient still with hypernatremia. Nutrition dx remains with feeds off at this time, but is resolving. See recs below, will continue to follow. Dx: Inadequate protein energy intake r/t clinical condition AEB NPO, intubation - ACTIVE, WITH IMPROVEMENT Intervention: Increase EN to new goal rate without Propofol, FINANCIAL SERVICES ASSISTANT if extubated Monitoring, Evaluation and Goals: SOME MET 1. EN to provide > 80% goal volume x 24 hours vs tolerance of diet advancement if [facility] Nutrition Therapy DATE: 09/16/16 Patient: MICHI AGUIRRE Physician: JOSE DE JESUS Address: [address] [place] [address] Room/Bed: [address], Zip: [place] [address] Admit Date: 09/12/16 Date of : [birth year] Height: 5 8 Weight: 339 153.8 extubated. 2. Improvement in labs (lytes, BUN, creatinine). 3. Skin; promote wound healing. 4. Gradual weight loss towards a healthy BMI range. Monitor: Per protocol, criteria to determine if above goals met Recommendations: 1. If the patient is extubated advance to Healthy heart diet per FINANCIAL SERVICES ASSISTANT. 2. If the patient is to remain intubated or fails FINANCIAL SERVICES ASSISTANT eval increase enteral feeds with Jevity 1.5 to new goal rate without Propofol: 55 ml/hr. Decrease Prostat to 30 ml once daily per tube to meet protein needs. Add free water flushes per MD noting hypernatremia. Status: Moderate nutrition risk Respectfully, Dona Whitney, ANDREA, LD Food and Nutritional Services [facility] cc: client file
--- NOTE | ~2016-09-12 | US84 ---
[id number] [facility]. [facility] [address] [facility]. [place], [place] [address] [id number] I MR#: [id number] Acc #: [id number] NAME: MICHI AGUIRRE : 1950 SEX: F STUDY DATE/TIME: 09/13/2016 14:45 UNIT: [facility] ROOM: [facility] STUDY DESCRIPTION: US LE Veins Complete Rolando Stdy Attending Physician: Chad Pineda M.D. Ordering Physician: Safia Caballero M.D. Primary Care Physician: No Primary Care Physician MEDICAL IMAGING REPORT This report is preliminary unless electronic signature is present EXAM Bilateral lower extremity venous Doppler 09/13/2016 INDICATIONS Bilateral lower extremity swelling for the past 2 days. PROCEDURE Contreras-scale, color Doppler and spectral imaging deep veins of the right and left leg. COMPARISON STUDIES None FINDINGS Deep veins in the right leg compress normally, show normal color Doppler and spectral characteristics. There is a 4.7 cm popliteal cyst. There is occlusive thrombus in the mid left femoral vein, distal left femoral vein, popliteal vein, probably peroneal vein and posterior tibial vein. There is a 2.9 cm left popliteal fossa cyst. IMPRESSION 1. Occlusive thrombus in the left mid and distal femoral vein, popliteal vein and probably peroneal and posterior tibial veins. 2. Findings were called to the patient's nurse at time of this dictation. Dictated by... Alex Fairbanks M.D. THIS IS AN ELECTRONICALLY VERIFIED REPORT Alex Fairbanks M.D. at 09/13/2016 6:39 PM Zaina TD: 09/13/2016 18:03 JOB #: [id number] MEDICAL IMAGING REPORT COPY
--- NOTE | ~2016-09-12 | CR7 ---
[facility] A Service of [facility] RADIOLOGY TEXT RESULTS PATIENT: MICHI AGUIRRE LOCATION: C5B 555-01 : 50 UNIT #: [id number] AGE: [address]: Chad Pineda MD SEX: F ORDER DR: [id number] [facility] [address] [facility]. [place], [place] [address] [id number] I MR#: [id number] Acc #: [id number] NAME: MICHI AGUIRRE : 1950 SEX: F STUDY DATE/TIME: 09/28/2016 17:04 UNIT: C5 ROOM: [facility] STUDY DESCRIPTION: CR Abdomen Single AP View Attending Physician: Chad Pineda M.D. Ordering Physician: Chad Pineda M.D. Primary Care Physician: Primary Care Physician No MEDICAL IMAGING REPORT This report is preliminary unless electronic signature is present EXAM Portable abdomen HISTORY Feeding tube placement today. FINDINGS Portable radiograph of the abdomen for feeding tube placement demonstrates the feeding tube is curled in the upper abdomen with its tip in the right upper quadrant at the level of the distal stomach or duodenal bulb. The tube extends approximately 35 cm beyond the EG junction. Mild gaseous distension of partly visualized transverse colon, particularly at its junction with the hepatic flexure. This could be secondary to mild colonic ileus. The exam does not include the left lateral abdomen or the pelvis. Dictated by... Jarrod Barros M.D. THIS IS AN ELECTRONICALLY VERIFIED REPORT Jarrod Barros M.D. at 09/29/2016 3:53 PM DION/raghavendra TD: 09/29/2016 07:33 JOB #: [id number] MEDICAL IMAGING REPORT COPY
--- NOTE | ~2016-09-12 | CO ---
Unit #: [id number] #: [id number] Patient: MICHI AGUIRRE [id number] [facility]. [place], [place] [address] [id number] MR#: [id number] NAME: MICHI AGUIRRE ROOM: [facility] Age: 65 Sex: F Admission Date: 09/12/2016 : 1950 Attending Physician: Chad Pineda M.D. CONSULTATION REPORT REASON FOR CONSULTATION Renal failure and acidosis. HISTORY OF PRESENT ILLNESS The patient is a 65-year-old female with significant past medical history of hypothyroidism, hyperlipidemia, hypertension, but mainly came to the hospital as she was found on the floor by the family. At that time, the patient found to be very much confused, but open her eyes. The patient was covered in urine and stools. There were several beer cans found by the police department. The patient do have a history of depression. When she came to the hospital, she was found to be in severe acidosis, hypernatremic, low blood pressure, significantly hypotensive, increased lactic acid level, started on IV fluids with some improvement in the blood pressure, urine output is still minimal. The patient was started on bicarbonate-based fluid with some improvement in metabolic acidosis and lactic acid level improving. Her chest x-ray that did show that the patient developing some bilateral lung infiltrate. The patient also had diarrhea. Stool for Clostridium difficile is pending. PAST MEDICAL HISTORY Significant for hypothyroidism, hyperlipidemia, hypertension. SOCIAL HISTORY The patient lives alone. Remote history of some smoking. She has never been to a doctor recently. FAMILY HISTORY Significant for hypothyroidism. HOME MEDICATION The patient took Synthroid, but right now she was not taking any medicine recently. PHYSICAL EXAMINATION GENERAL: The patient is a middle-aged female, not in any acute distress. VITAL SIGNS: Last blood pressure is 91/60, pulse is 90 with irregular heart rate, respiratory rate 27, and temperature is 98. HEAD AND NECK: Pupils are reactive to light. Extraocular movements intact, but pupil are very much constricted. NECK: There is no JVD. No palpable lymph node in the neck. Thyroid is not enlarged. No carotid bruit. CHEST: The patient has bilateral air entry. No wheeze. No crackles. HEART: Irregular rate and rhythm, but no murmur, no gallop. ABDOMEN: Soft. Bowel sounds are positive. No guarding. No rigidity. Unit #: [id number] #: [id number] Patient: MICHI AGUIRRE No hepatosplenomegaly. No rebound tenderness. EXTREMITIES: No edema. Peripheral pulses are weak, but palpable. NEUROLOGIC: The patient is sedated at this time. DIAGNOSTIC STUDIES IMAGING STUDIES: Chest x-ray showed cardiomegaly with some bilateral infiltrate. LABORATORY RESULTS: Showed creatinine of 5.2, sodium of 147, potassium 3.3, bicarb 18, anion gap is 14. Hemoglobin is 12, hematocrit 38, white cell count 21,000. INR is 1.2. Urinalysis showed slight proteinuria. ASSESSMENT AND PLAN 1. Acute kidney injury likely secondary to acute tubular necrosis, because of hemodynamic instability and may be contributed by sepsis. At this time, hemodynamic stability will be our main goal and agree with fluid repletion. We will give another 500 mL of saline bolus. We will give patient some albumin. 2. Sepsis. We will continue antibiotic at this time. Follow up with the cultures. 3. Clostridium difficile colitis. Follow up with the stool cultures. Continue metronidazole. 4. Acidosis. Continue bicarbonate-based fluid. 5. Atrial fibrillation. Follow up with the Cardiology. The patient's rate is so for controlled. 6. At this time, I will continue the IV fluid. We will repeat labs later today and follow up with electrolytes tomorrow morning. I think once the patient hemodynamically stable, the patient's renal function will improve slowly. Thank you for letting me to participate in taking care of this patient. Dictated by... Yuridia Valencia/seamus TD: 09/14/2016 02:17 JOB #: [id number] CONSULTATION REPORT X Olu Barbour MD X CONSULTATION REPORT
--- NOTE | ~2016-09-12 | CO ---
Unit #: [id number] #: [id number] Patient: MICHI AGUIRRE [id number] [facility]. [place], [place] [address] [id number] I MR#: [id number] NAME: MICHI AGUIRRE ROOM: [facility] Age: 65 Sex: F Admission Date: 09/12/2016 : 1950 Attending Physician: Chad Pineda M.D. Consultation Date: 08/13/2016 CONSULTATION REPORT HISTORY OF PRESENT ILLNESS This is a 65-year-old lady with a history of COPD and CHF. The patient was found down last night in her own stool. The patient had not been talked for approximately 1 week. The patient had not been taking any of her medications and was found when she was seen in the ER to have hypothyroidism with TSH of 41, the CK was 3000 suggesting rhabdomyolysis. The patient was given a normal saline bolus. She was given resuscitation for new renal abnormality. The patient was found to have a new onset significant decubitus ulcer, it was debrided last night. The patient has had very significant decreased mobility over the past 2 to 3 months, however, this has become much more significant over the past several days and the patient is now having significant respiratory distress resulting in requirement of being placed on the ventilator. PAST MEDICAL HISTORY Significant for hypothyroidism, hyperlipidemia, hypertension, and DJD. PAST SURGICAL HISTORY Noncontributory. SOCIAL HISTORY The patient lives alone. History of remote tobacco use. Nonalcohol user. Regularly does not use any illicit drugs. FAMILY HISTORY Significant for hypothyroidism. ALLERGIES The patient has no known medical allergies. REVIEW OF SYSTEMS Unobtainable, because the patient is on the vent and no family is available. PHYSICAL EXAMINATION VITAL SIGNS: Right now, the vital signs include T-current 95, blood pressure is 90/65, pulse 92, respiratory rate 27, 100% on non-rebreather mask. HEENT: The patient has very dry mucosal membranes. Pupils are equal, round, and reactive to light. The patient is not responsive. Head is normocephalic and atraumatic. NECK: Shows extensive excessive muscle use. No JVD. CHEST: Shows decreased breath sounds bilaterally with rhonchi, also shows significant wheezes. Unit #: [id number] #: [id number] Patient: MICHI AGUIRRE CARDIOVASCULAR: Regular rate. No gallop. ABDOMEN: Soft, nontender, and nondistended. Decreased bowel sounds. EXTREMITIES: Show edema +1. DIAGNOSTIC STUDIES LABORATORY RESULTS: White count is 18.8. BUN 153, creatinine 5.6 on presentation. ALT and AST 98 and 58, amylase 77, lipase 111, and CPK is 3000. Lactic acid is 4 on presentation down to 2.5 this morning. ASSESSMENT AND PLAN 1. Neuro: The patient has altered mental status secondary to metabolic encephalopathy and infection. The patient will probably require ventilation and we will place on sedation. 2. The patient probably has aspiration pneumonia, however, dehydrated and nothing is seen on x-ray. Therefore, we are going to place on the ventilator and hydrate. The patient is on Zosyn. We are going try culturing the sputum. 3. Cardiovascular: The patient's hypertension and likely dehydration serves possible sepsis coming from decubitus infection. Urinalysis does not look particularly dirty. The other source maybe aspiration. 4. Infectious Disease: We are going to start the patient on Zosyn and Zyvox for renal insufficiency, rule out community methicillin-resistant Staphylococcus aureus. The patient has significant metabolic acidosis. We are going to check bicarb to see. The patient is going to be started on sepsis protocol. 5. Heme: Appears stable. We are going to do therapeutic Lovenox. The patient has been started on Synthroid IV and Decadron. We are going to check an echocardiogram to examine ejection fraction. We are going to do PTI and Lovenox for deep vein thrombosis prophylaxis. Thank you very much for this consult and allowing us to participate in the care of this patient. Please page me at [phone] if you have any questions. Dictated by... uGrjit Tierney M.D. DAVID/seamus TD: 09/18/2016 02:00 JOB #: [id number] CONSULTATION REPORT X Tr Tierney MD CONSULTATION REPORT
--- NOTE | ~2016-09-12 | OR ---
Unit #: [id number] #: [id number] Patient: MICHI AGUIRRE [id number] [address] [place], [place] [address] [id number] MR#: [id number] NAME: MICHI AGUIRRE ROOM: [facility] Date of Procedure: 09/16/2016 Admission Date: 09/12/2016 Surgeon: Dex Bajwa M.D. : 1950 Attending Physician: Chad Pineda M.D. OPERATIVE REPORT PREOPERATIVE DIAGNOSIS Necrotic wound, right and left buttock. POSTOPERATIVE DIAGNOSIS Necrotic wound, right and left buttock. PROCEDURE PERFORMED Sharp excisional debridement of skin and subcutaneous tissue of necrotic wound of right and left buttock 20 x 20 cm total. ANESTHESIA General endotracheal anesthesia. FINDINGS The patient had sharp excisional debridement of necrotic wounds from the right and left buttock totaling 20 x 20 cm. Sharp excisional debridement of skin and subcutaneous tissue was performed to viable tissue. FLUIDS 1000 mL crystalloid. ESTIMATED BLOOD LOSS Minimal. DRAINS None. TUBES None. SPECIMENS None. COMPLICATIONS None apparent. CONDITION The patient tolerated the procedure well. INDICATIONS FOR PROCEDURE The patient is a 65-year-old female, who is morbidly obese and has developed necrotic areas of her right and left buttock. She presents at Unit #: [id number] #: [id number] Patient: MICHI AGUIRRE this time for sharp excisional debridement. DESCRIPTION OF PROCEDURE After obtaining informed consent from the patient's family as well as receiving scheduled antibiotics, the patient was brought to the operating room and after adequate general endotracheal anesthesia was obtained, she was placed in the right lateral decubitus position with right axillary roll in place. All pressure points carefully padded and all extremities manipulated very carefully. Her buttock and perineum were all prepped and draped in a sterile fashion. Using a scalpel, sharp excisional debridement was performed of skin and subcutaneous tissue to viable tissue of the right and left buttock wounds. There was good hemostasis obtained. The total was approximately 20 x 20 cm. A saline soaked fluffs were applied followed by a dry dressing and tape. Needle counts, sponge counts, and instrument counts were all correct as reported by the scrub nurse x2. The patient went from the operative room to the recovery room in stable condition. Dictated by... Yuridia Lares/seamus TD: 09/16/2016 21:44 JOB #: [id number] CC: [facility] Charlene Quezada M.D. OPERATIVE REPORT X Dex Bajwa MD X PROCEDURE OPERATIVE NOTE
--- NOTE | ~2016-09-12 | EKG ---
PATIENT: MICHI AGUIRRE UNIT #: [id number] Ventricular Rate: 75 BPM Atrial Rate: 166 BPM QRS Duration: 116 ms Q-T Interval: 466 ms QTC Calculation(Bezet): 520 ms Calculated R [place]: 32 degrees Calculated T [place]: 123 degrees Diagnosis Line: Atrial fibrillation Diagnosis Line: Nonspecific T wave abnormality , probably Diagnosis Line: digitalis effect Diagnosis Line: Prolonged QT Diagnosis Line: Abnormal ECG Diagnosis Line: When compared with ECG of 13-SEP-2016 06:14, Diagnosis Line: Nonspecific T wave abnormality has replaced Diagnosis Line: inverted T waves in Inferior leads Diagnosis Line: T wave inversion no longer evident in Anterior Diagnosis Line: leads Diagnosis Line: QT has lengthened Diagnosis Line: Confirmed by YADIRA MARCANO MD ([id number]) on 09/14/2016 Diagnosis Line: 7:19:10 AM INTERPRETING MD: KRYS GRIFFITH
--- NOTE | ~2016-09-12 | CR7 ---
[facility] A Service of [facility] RADIOLOGY TEXT RESULTS PATIENT: MICHI AGUIRRE LOCATION: CICCU2 CICCU2 : [birth year] UNIT #: [id number] AGE: [address]: Chad Pineda MD SEX: F ORDER DR: [id number] [facility] [address] [facility] [place] [facility]. [place], [place] [address] [id number] I MR#: [id number] #: [id number] NAME: MICHI AGUIRRE : 1950 SEX: F STUDY DATE/TIME: 09/13/2016 10:20 UNIT: CICCU2 ROOM: [facility] STUDY DESCRIPTION: CR Abdomen Single AP View Attending Physician: Chad Pineda M.D. Ordering Physician: Gurjit Tierney M.D. Primary Care Physician: Primary Care Physician No MEDICAL IMAGING REPORT This report is preliminary unless electronic signature is present EXAM Frontal abdomen, 09/13/2016 INDICATION Dobbhoff tube insertion. Abdominal pain, shortness of breath. Symptoms began today. TECHNIQUE Frontal abdomen was performed. COMPARISON No comparisons FINDINGS There is an enteric tube present and the tip is at the level of the gastric antrum. There is gaseous distension of the stomach. Degenerative changes are present in the thoracolumbar spine. No dilated air-filled loops of bowel are seen. IMPRESSION The tip of the enteric tube is at the expected level of the gastric antrum. Dictated by... Maykel Samuel M.D. THIS IS AN ELECTRONICALLY VERIFIED REPORT Maykel Samuel M.D. at 09/13/2016 3:02 PM KORINA/tani TD: 09/13/2016 11:47 JOB #: [id number] [facility] A Service [facility] RADIOLOGY TEXT RESULTS PATIENT: MICHI AGUIRRE LOCATION: CICCU2 CICCU2 : [birth year] UNIT #: [id number] AGE: [address]: Chad Pineda MD SEX: F ORDER DR: MEDICAL IMAGING REPORT COPY
--- NOTE | ~2016-09-12 | XA166 ---
[facility] A Service of [facility] RADIOLOGY TEXT RESULTS PATIENT: MICHI AGUIRRE LOCATION: C5B 555-01 : [birth year] UNIT #: [id number] AGE: [address]: Chad Pineda MD SEX: F ORDER DR: [id number] [facility] [address] [facility]. [place], [place] [address] [id number] I MR#: [id number] Acc #: [id number] NAME: MICHI AGUIRRE : 1950 SEX: F STUDY DATE/TIME: 09/30/2016 11:22 UNIT: C5B ROOM: [facility] STUDY DESCRIPTION: XA PICC Line Placement WO [facility] Attending Physician: Chad Pineda M.D. Ordering Physician: Safia Caballero M.D. Primary Care Physician: No Primary Care Physician MEDICAL IMAGING REPORT This report is preliminary unless electronic signature is present EXAM Attempted PICC line placement. HISTORY Ms. Aguirre is a 65-year-old lady with a history of respiratory failure. She was referred for PICC line placement. She had a prior central line which she pulled out herself. She is apparently to be discharged to the nursing facility and she receives multiple antibiotics. PROCEDURE Preliminary ultrasound of the right arm was performed which demonstrated very small caliber vessels, which showed intermittent areas of narrowing. None of these were felt to be suitable for PICC line placement. 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 Again however, she appeared to have very small caliber vessels. At this point the procedure was terminated after discussion with her primary care physician. She will be transferred on oral medications as nursing facilities will not accept her with a central line in place. IMPRESSION Ultrasound of both upper extremities showed extremely small caliber vessels with multiple areas of narrowing. The patient is not felt to be a PICC line candidate. Dictated by... Jennifer Beck M.D. THIS IS AN ELECTRONICALLY VERIFIED REPORT Jennifer Beck M.D. at 10/01/2016 4:39 PM AFF/gz [facility]. [facility] A Service of [facility] RADIOLOGY TEXT RESULTS PATIENT: MICHI AGUIRRE LOCATION: C5B 555-01 : [birth year] UNIT #: [id number] AGE: [address]: Chad Pineda MD SEX: F ORDER DR: TD: 10/01/2016 10:53 JOB #: [id number] MEDICAL IMAGING REPORT COPY
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
--- NOTE | ~2016-09-12 | CR72 ---
[facility] A Service of [facility] RADIOLOGY TEXT RESULTS PATIENT: MICHI AGUIRRE LOCATION: [address]- : [birth year] UNIT #: [id number] AGE: [address]: Chad Pineda MD SEX: F ORDER DR: [id number] [facility] [address] [facility]. [place], [place] [address] [id number] I MR#: [id number] #: [id number] NAME: MICHI AGUIRRE : 1950 SEX: F STUDY DATE/TIME: 09/13/2016 10:17 UNIT: [facility] ROOM: [facility] STUDY DESCRIPTION: CR Chest Single View Portable Attending Physician: Chad Pineda M.D. Ordering Physician: Gurjit Tierney M.D. Primary Care Physician: Primary Care Physician No MEDICAL IMAGING REPORT This report is preliminary unless electronic signature is present EXAM Frontal chest, 09/13/2016 at 10:17 hours INDICATION Status post intubation in a 65-year-old female with Dobbhoff tube placement and intubation. Pain symptoms today. Short of breath. TECHNIQUE Frontal chest was performed. COMPARISON 09/13/2016 at 09:23 hours FINDINGS There is a new ET tube present and the tip is approximately 3.0 cm above the level of the lisa. Enteric tube tip below the diaphragm and not in the field of view. Right-sided central line unchanged. Cardiac silhouette enlarged. Aorta tortuous and ectatic. Lung volumes are lower. There is increasing asymmetric atelectasis or diffuse infiltrate in the left lung. No distinct new opacities on the right. No pneumothorax. Probable skin fold or other external edge shadow simulating a tiny pneumothorax on the left but there appear to be lung markings peripheral to the edge shadow. IMPRESSION 1. ET tube tip in good position about 3.0 cm above the lisa. Enteric tube tip below the diaphragm and not in the field of view. 2. Increasing opacities in the left lung may reflect worsening atelectasis or less likely faint infiltrate. No new effusion. 3. No distinct pneumothorax identified. Probable edge shadow artifact projects over the left lung apex. STS. [facility] A Service of [facility] RADIOLOGY TEXT RESULTS PATIENT: MICHI AGUIRRE LOCATION: [facility]- : [birth year] UNIT #: [id number] AGE: [address]: Chad Pineda MD SEX: F ORDER DR: STAT * RESULT Dictated by... Maykel Samuel M.D. THIS IS AN ELECTRONICALLY VERIFIED REPORT Maykel Samuel M.D. at 09/13/2016 3:02 PM Lor TD: 09/13/2016 11:15 JOB #: [id number] MEDICAL IMAGING REPORT COPY
--- NOTE | ~2016-09-12 | OR ---
Unit #: [id number] #: [id number] Patient: MICHI AGUIRRE [id number] [address] [place], [place] [address] [id number] I MR#: [id number] NAME: MICHI AGUIRRE ROOM: [facility] Date of Procedure: 09/27/2016 Admission Date: 09/12/2016 Surgeon: Dex Bajwa M.D. : 1950 Attending Physician: Chad Pineda M.D. OPERATIVE REPORT JOB NOTE: CC: DR. PINEDA PREOPERATIVE DIAGNOSIS Necrotic wound, left buttock and sacral area. POSTOPERATIVE DIAGNOSIS Necrotic wound, left buttock and sacral area. PROCEDURE PERFORMED Sharp excisional debridement of skin and subcutaneous tissue, 20 x 20 cm total area of left buttock and sacral area. ANESTHESIA General endotracheal anesthesia. FINDINGS The patient had sharp excisional debridement of skin and subcutaneous tissues was performed to viable tissue. SPECIMENS Sent to pathology. COMPLICATIONS None apparent. CONDITION The patient tolerated the procedure well. INDICATIONS FOR PROCEDURE The patient is a 65-year-old female, who has a large necrotic wound over left buttock and sacral area. She presents at this time for sharp excisional debridement. DESCRIPTION OF PROCEDURE After obtaining informed consent, the patient who was receiving scheduled antibiotics was brought to the operating room and after adequate general endotracheal anesthesia was obtained, she was placed in the left lateral decubitus position with all areas carefully padded and extremities manipulated carefully. The perineum, buttock, and sacral areas were prepped and draped in a sterile fashion. Beginning first in the sacral area, the skin and superficial subcutaneous tissues were sharply excised with a scalpel and hemostasis was obtained with the Bovie. At this point Unit #: [id number] #: [id number] Patient: MICHI AGUIRRE in time, the large necrotic buttock wound was sharply excised circumferentially with a skin and subcutaneous tissue with a scalpel and was excised back to viable tissue. Hemostasis was obtained with the Bovie. Each wound was irrigated and wet-to-dry dressing was placed. Needle counts, sponge counts, and instrument counts were all correct as reported by the scrub nurse x2. The patient went from the operating room to the recovery room in stable condition. Dictated by... Yuridia Lares/seamus TD: 09/27/2016 21:18 JOB #: [id number] CC: [facility] OPERATIVE REPORT X Dex Bajwa MD X PROCEDURE OPERATIVE NOTE
[2016-09-12 18:56] LABS: BASOPHIL% 0.1 % (0-2.5); EOSINOPHIL% 0.1 % (0.0-7.0); HEMATOCRIT 43.4 % (35.0-45.0); HEMOGLOBIN 13.8 gm/dL (12.0-16.0); LYMPHOCYTE# 0.9 X10e3 (1.0-3.5); LYMPHOCYTE% 4.7 % (17.0-45.0); MEAN CELL VOLUME 95.8 FL (83-96); MEAN CORPUSCULAR HEMOGLOBIN 30.6 PG (28-34); MEAN CORPUSCULAR HGB CONC 31.9 g/dL (30-36); MEAN PLATELET VOLUME 10.5 FL (6.5-11.5); MONOCYTE# 1.1 X10e3 (0-1.0); MONOCYTE% 5.8 % (3.0-12.0); NEUTROPHIL# 16.8 X10e3 (1.5-7.1); NEUTROPHIL% 89.3 % (40-75); PLATELET COUNT 303 X10e3 (140-420); RED BLOOD COUNT 4.53 X10e (3.90-5.30); RED CELL DISTRIBUTION WIDTH 14.5 % (11.0-15.5); WHITE BLOOD COUNT 18.8 X10e3 (4.0-10.5)
[2016-09-12 18:58] LABS: ANISOCYTOSIS SL; DIFF IND YES; PLATELET ESTIMATE NORMAL (NORMAL); POIKILOCYTOSIS SL
[2016-09-12 19:00] LABS: ARTERIAL BLD GAS O2 SATURATION 94.9 % (90.0-100.0); ARTERIAL BLOOD GAS CARBOXY HB 0.3 %sat (0.0-9.0); ARTERIAL BLOOD GAS HCO3 16.9 mmol/L; ARTERIAL BLOOD GAS MET HB 0.8 %sat (0.0-2.0); ARTERIAL BLOOD GAS PO2 88.6 mmHg (80.0-100); ARTERIAL BLOOD GAS pH 7.319 (7.350-7.450); ARTERIAL DRAW? YES
[2016-09-12 19:01] LABS: ARTERIAL BLOOD GAS ART SITE RIGHT BRACHIAL; ARTERIAL BLOOD GAS DELIVERY NASAL CANNULA
[2016-09-12 19:06] LABS: POC - CKMB >80.0 ng/mL (0.0-7.9); POC - TROPONIN <0.05 ng/mL (<=0.05)
[2016-09-12 19:08] LABS: INR 1.2; PROTHROMBIN TIME (PATIENT) 12.7 SECONDS (9.6-11.5)
[2016-09-12 19:43] LABS: URINE SOURCE CLEAN CATCH
[2016-09-12 19:49] LABS: URINE APPEARANCE CLOUDY; URINE BLOOD NEG (NEG); URINE COLOR DK YELLOW; URINE GLUCOSE NEG (NEG); URINE KETONE NEG (NEG); URINE LEUKOCYTE ESTERASE 1+ (NEG); URINE NITRATE NEG (NEG); URINE PROTEIN 2+ (NEG); URINE SPECIFIC GRAVITY 1.021 (1.003-1.035)
[2016-09-12 19:49] LABS: BILIRUBIN,INDIRECT 1.1 mg/dL (0.0-0.9); BILIRUBIN,TOTAL 2.1 mg/dL (0.2-2.0); CALCIUM SERUM 9.8 mg/dL (8.4-10.2); CREATININE SERUM 5.6 mg/dL (0.6-1.4); GLOM FILT RATE Estimated 8.1 mL/min (>60); POTASSIUM 3.8 mmol/L (3.5-5.1); PROTEIN TOTAL SERUM 7.9 g/dL (6.0-8.3)
[2016-09-12 19:50] LABS: BUN/CREATININE RATIO 27.32
[2016-09-12 19:52] LABS: URBCS1 AUWI 0-2 /[HPF] (0-2); URINE BACTERIA AUWI NEG (NEGATIVE); URINE SQUAMOUS EPITHELIAL CELL OCC /[HPF]
[2016-09-12 19:53] LABS: CULTURE INDICATED? NO; U HYALINE CASTS AUWI 0-2 /[LPF]; URINE BILIRUBIN NEG (NEG)
[2016-09-12 20:06] LABS: AMPHETAMINE NEG (NEG); BARBITURATES NEG (NEG); BENZODIAZEPINES NEG (NEG); COCAINE NEG (NEG); MARIJUANA NEG (NEG); OPIATES NEG (NEG); TRICYCLIC ANTIDEPRESSANTS NEG (NEG); U METHADONE NEG (NEG)
[2016-09-12 20:47] LABS: ACETAMINOPHEN <10 ug/mL; SALICYLATE <4.0 mg/dL
[2016-09-12 23:17] LABS: THYROID STIMULATING HORMONE 41.07 uIU/ml (0.34-5.60)
[2016-09-12 23:24] LABS: FREE THYROXIN (T4) 0.71 ng/dL (0.58-1.64)
[2016-09-13 01:45] LABS: %MB 3.1 % (0.0-4.0); MB 119.2 ng/ml
[2016-09-13 02:30] LABS: BASOPHIL% 0.1 % (0-2.5); EOSINOPHIL% 0.1 % (0.0-7.0); HEMATOCRIT 38.2 % (35.0-45.0); HEMOGLOBIN 12.1 gm/dL (12.0-16.0); LYMPHOCYTE# 1.1 X10e3 (1.0-3.5); LYMPHOCYTE% 5.1 % (17.0-45.0); MEAN CORPUSCULAR HEMOGLOBIN 30.7 PG (28-34); MEAN CORPUSCULAR HGB CONC 31.7 g/dL (30-36); MEAN PLATELET VOLUME 10.4 FL (6.5-11.5); MONOCYTE# 1.3 X10e3 (0-1.0); MONOCYTE% 6.2 % (3.0-12.0); NEUTROPHIL# 19.1 X10e3 (1.5-7.1); NEUTROPHIL% 88.5 % (40-75); PLATELET COUNT 257 X10e3 (140-420); RED BLOOD COUNT 3.94 X10e (3.90-5.30); RED CELL DISTRIBUTION WIDTH 14.7 % (11.0-15.5); WHITE BLOOD COUNT 21.6 X10e3 (4.0-10.5)
[2016-09-13 02:33] LABS: DIFF IND NO
[2016-09-13 03:43] LABS: ARTERIAL BLD GAS O2 SATURATION 97.1 % (90.0-100.0); ARTERIAL BLOOD GAS CARBOXY HB 0.2 %sat (0.0-9.0); ARTERIAL BLOOD GAS MET HB 0.9 %sat (0.0-2.0); ARTERIAL BLOOD GAS PCO2 34.9 mmHg (35.0-45.0)
[2016-09-13 04:22] LABS: ALBUMIN SERUM 2.3 g/dL (3.5-5.0); BILIRUBIN,TOTAL 1.3 mg/dL (0.2-2.0); CALCIUM SERUM 8.4 mg/dL (8.4-10.2); CREATININE SERUM 4.9 mg/dL (0.6-1.4); GLOM FILT RATE Estimated 9.4 mL/min (>60); POTASSIUM 3.3 mmol/L (3.5-5.1); PROTEIN TOTAL SERUM 6.1 g/dL (6.0-8.3)
[2016-09-13 04:23] LABS: BUN/CREATININE RATIO 29.18
[2016-09-13 04:31] LABS: ARTERIAL BLOOD GAS ALLEN TEST NORMAL; ARTERIAL BLOOD GAS ART SITE RIGHT RADIAL; ARTERIAL BLOOD GAS DELIVERY NASAL CANNULA; ARTERIAL DRAW? YES
[2016-09-13 08:12] LABS: CALCIUM SERUM 8.3 mg/dL (8.4-10.2); CREATININE SERUM 5.2 mg/dL (0.6-1.4); GLOM FILT RATE Estimated 8.8 mL/min (>60); POTASSIUM 3.3 mmol/L (3.5-5.1)
[2016-09-13 08:13] LABS: BUN/CREATININE RATIO 29.61
[2016-09-13 11:38] LABS: ARTERIAL BLD GAS O2 SATURATION 98.9 % (90.0-100.0); ARTERIAL BLOOD GAS CARBOXY HB 0.3 %sat (0.0-9.0); ARTERIAL BLOOD GAS HCO3 19.3 mmol/L; ARTERIAL BLOOD GAS PCO2 38.3 mmHg (35.0-45.0); ARTERIAL BLOOD GAS pH 7.309 (7.350-7.450)
[2016-09-13 11:39] LABS: ARTERIAL BLOOD GAS ALLEN TEST NORMAL; ARTERIAL BLOOD GAS ART SITE RIGHT RADIAL; ARTERIAL BLOOD GAS DELIVERY VENT; ARTERIAL BLOOD GAS VENT MODE AC; ARTERIAL DRAW? YES
[2016-09-13 18:27] LABS: BUN/CREATININE RATIO 28.2; CALCIUM SERUM 7.7 mg/dL (8.4-10.2); GLOM FILT RATE Estimated 9.2 mL/min (>60); POTASSIUM 3.2 mmol/L (3.5-5.1)
[2016-09-13 18:40] LABS: URINE APPEARANCE TURBID; URINE BLOOD 3+ (NEG); URINE COLOR DK YELLOW; URINE GLUCOSE NEG (NEG); URINE KETONE NEG (NEG); URINE LEUKOCYTE ESTERASE 2+ (NEG); URINE NITRATE NEG (NEG); URINE PROTEIN 1+ (NEG); URINE SPECIFIC GRAVITY 1.014 (1.003-1.035)
[2016-09-13 18:42] LABS: URINE SQUAMOUS EPITHELIAL CELL FEW /[HPF]; UWBCS1 AUWI 25-50 (0-5)
[2016-09-13 19:04] LABS: URINE BILIRUBIN NEG (NEG)
[2016-09-13 19:05] LABS: URINE BACTERIA AUWI 2+ (NEGATIVE)
[2016-09-13 19:17] LABS: CREATININE,RANDOM URINE 103 mg/dL; SODIUM URINE RANDOM 14 mmol/L; TOTAL PROTEIN,RANDOM URINE 60 mg/dl (<10)
[2016-09-14 03:42] LABS: ARTERIAL BLOOD GAS HCO3 21.5 mmol/L; ARTERIAL BLOOD GAS PCO2 38.3 mmHg (35.0-45.0); ARTERIAL BLOOD GAS pH 7.359 (7.350-7.450)
[2016-09-14 03:43] LABS: ARTERIAL BLOOD GAS ALLEN TEST NORMAL; ARTERIAL BLOOD GAS ART SITE RIGHT RADIAL; ARTERIAL BLOOD GAS DELIVERY VENT; ARTERIAL BLOOD GAS VENT MODE AC; ARTERIAL DRAW? YES
[2016-09-14 05:54] LABS: BASOPHIL% 0.2 % (0-2.5); EOSINOPHIL# 0.1 X10e3 (0-0.7); EOSINOPHIL% 0.6 % (0.0-7.0); HEMATOCRIT 30.6 % (35.0-45.0); LYMPHOCYTE# 2.6 X10e3 (1.0-3.5); LYMPHOCYTE% 14.8 % (17.0-45.0); MEAN CELL VOLUME 95.1 FL (83-96); MEAN CORPUSCULAR HEMOGLOBIN 31.2 PG (28-34); MEAN CORPUSCULAR HGB CONC 32.8 g/dL (30-36); MEAN PLATELET VOLUME 10.3 FL (6.5-11.5); MONOCYTE% 5.8 % (3.0-12.0); NEUTROPHIL# 13.8 X10e3 (1.5-7.1); NEUTROPHIL% 78.6 % (40-75); PLATELET COUNT 200 X10e3 (140-420); RED BLOOD COUNT 3.21 X10e (3.90-5.30); RED CELL DISTRIBUTION WIDTH 14.6 % (11.0-15.5); WHITE BLOOD COUNT 17.5 X10e3 (4.0-10.5)
[2016-09-14 05:59] LABS: DIFF IND NO
[2016-09-14 06:37] LABS: ALBUMIN SERUM 2.5 g/dL (3.5-5.0); BILIRUBIN,TOTAL 0.9 mg/dL (0.2-2.0); BUN/CREATININE RATIO 29.54; CALCIUM SERUM 7.8 mg/dL (8.4-10.2); CREATININE SERUM 4.4 mg/dL (0.6-1.4); GLOM FILT RATE Estimated 10.7 mL/min (>60); MAGNESIUM 1.7 mg/dL (1.6-3.0); PHOSPHOROUS 4.7 mg/dL (2.5-4.6); PROTEIN TOTAL SERUM 5.4 g/dL (6.0-8.3)
[2016-09-14 06:38] LABS: POTASSIUM 2.8 mmol/L (3.5-5.1)
[2016-09-14 13:44] LABS: CALCIUM SERUM 8.1 mg/dL (8.4-10.2); CREATININE SERUM 4.1 mg/dL (0.6-1.4); GLOM FILT RATE Estimated 11.6 mL/min (>60); POTASSIUM 3.3 mmol/L (3.5-5.1)
[2016-09-14 13:57] LABS: BUN/CREATININE RATIO 30.48
[2016-09-14 14:22] LABS: CHOLESTEROL 91 mg/dL (0-200); HDL CHOLESTEROL 14 mg/dL (35-95); LDL CHOLESTEROL 56 mg/dL (-130); LDL/HDL RATIO 4 RATIO (0-4); TRIGLYCERIDES 103 mg/dL (10-160)
[2016-09-15 03:39] LABS: BASOPHIL% 0.3 % (0-2.5); EOSINOPHIL# 0.1 X10e3 (0-0.7); EOSINOPHIL% 0.8 % (0.0-7.0); HEMATOCRIT 28.6 % (35.0-45.0); HEMOGLOBIN 9.5 gm/dL (12.0-16.0); LYMPHOCYTE# 1.8 X10e3 (1.0-3.5); LYMPHOCYTE% 16.4 % (17.0-45.0); MEAN CELL VOLUME 95.2 FL (83-96); MEAN CORPUSCULAR HEMOGLOBIN 31.6 PG (28-34); MEAN CORPUSCULAR HGB CONC 33.2 g/dL (30-36); MONOCYTE# 0.7 X10e3 (0-1.0); MONOCYTE% 5.9 % (3.0-12.0); NEUTROPHIL# 8.4 X10e3 (1.5-7.1); NEUTROPHIL% 76.6 % (40-75); PLATELET COUNT 160 X10e3 (140-420); RED CELL DISTRIBUTION WIDTH 14.8 % (11.0-15.5); WHITE BLOOD COUNT 10.9 X10e3 (4.0-10.5)
[2016-09-15 03:43] LABS: DIFF IND NO
[2016-09-15 03:54] LABS: INR 1.1
[2016-09-15 04:19] LABS: ALBUMIN SERUM 2.5 g/dL (3.5-5.0); BILIRUBIN,TOTAL 0.7 mg/dL (0.2-2.0); CALCIUM SERUM 7.9 mg/dL (8.4-10.2); CREATININE SERUM 3.6 mg/dL (0.6-1.4); GLOM FILT RATE Estimated 13.5 mL/min (>60); POTASSIUM 3.6 mmol/L (3.5-5.1); PROTEIN TOTAL SERUM 5.1 g/dL (6.0-8.3)
[2016-09-15 04:24] LABS: BUN/CREATININE RATIO 30.27
[2016-09-15 09:53] LABS: ARTERIAL BLD GAS O2 SATURATION 99.3 % (90.0-100.0); ARTERIAL BLOOD GAS HCO3 21.7 mmol/L; ARTERIAL BLOOD GAS PCO2 36.1 mmHg (35.0-45.0); ARTERIAL BLOOD GAS pH 7.386 (7.350-7.450)
[2016-09-15 09:54] LABS: ARTERIAL BLOOD GAS ART SITE RIGHT RADIAL; ARTERIAL BLOOD GAS DELIVERY VENT; ARTERIAL DRAW? YES
[2016-09-15 09:55] LABS: ARTERIAL BLOOD GAS VENT MODE SIMV
[2016-09-15 18:40] LABS: CALCIUM SERUM 8.2 mg/dL (8.4-10.2); CREATININE SERUM 2.9 mg/dL (0.6-1.4); GLOM FILT RATE Estimated 17.3 mL/min (>60); POTASSIUM 4.8 mmol/L (3.5-5.1)
[2016-09-15 18:46] LABS: BUN/CREATININE RATIO 35.86
[2016-09-16 04:07] LABS: ARTERIAL BLD GAS O2 SATURATION 98.2 % (90.0-100.0); ARTERIAL BLOOD GAS CARBOXY HB 0.5 %sat (0.0-9.0); ARTERIAL BLOOD GAS HCO3 22.5 mmol/L; ARTERIAL BLOOD GAS MET HB 1.1 %sat (0.0-2.0); ARTERIAL BLOOD GAS pH 7.405 (7.350-7.450)
[2016-09-16 04:21] LABS: ARTERIAL BLOOD GAS ART SITE RIGHT RADIAL; ARTERIAL BLOOD GAS DELIVERY VENT; ARTERIAL BLOOD GAS VENT MODE A/C; ARTERIAL DRAW? YES
[2016-09-16 05:47] LABS: BASOPHIL% 0.1 % (0-2.5); EOSINOPHIL% 0.5 % (0.0-7.0); HEMATOCRIT 30.4 % (35.0-45.0); HEMOGLOBIN 10.1 gm/dL (12.0-16.0); LYMPHOCYTE# 1.2 X10e3 (1.0-3.5); LYMPHOCYTE% 11.4 % (17.0-45.0); MEAN CELL VOLUME 95.5 FL (83-96); MEAN CORPUSCULAR HEMOGLOBIN 31.7 PG (28-34); MEAN CORPUSCULAR HGB CONC 33.2 g/dL (30-36); MEAN PLATELET VOLUME 10.2 FL (6.5-11.5); MONOCYTE# 0.9 X10e3 (0-1.0); MONOCYTE% 8.9 % (3.0-12.0); NEUTROPHIL# 8.3 X10e3 (1.5-7.1); NEUTROPHIL% 79.1 % (40-75); PLATELET COUNT 180 X10e3 (140-420); RED BLOOD COUNT 3.18 X10e (3.90-5.30); RED CELL DISTRIBUTION WIDTH 14.6 % (11.0-15.5); WHITE BLOOD COUNT 10.5 X10e3 (4.0-10.5)
[2016-09-16 05:53] LABS: DIFF IND YES
[2016-09-16 06:45] LABS: ANISOCYTOSIS SL; PLATELET ESTIMATE NORMAL (NORMAL)
[2016-09-16 07:10] LABS: BUN/CREATININE RATIO 38.07; CALCIUM SERUM 8.9 mg/dL (8.4-10.2); CREATININE SERUM 2.6 mg/dL (0.6-1.4); GLOM FILT RATE Estimated 19.6 mL/min (>60); POTASSIUM 4.6 mmol/L (3.5-5.1)
[2016-09-16 14:02] LABS: ARTERIAL BLOOD GAS CARBOXY HB 0.5 %sat (0.0-9.0); ARTERIAL BLOOD GAS HCO3 21.2 mmol/L; ARTERIAL BLOOD GAS MET HB 1.1 %sat (0.0-2.0); ARTERIAL BLOOD GAS PCO2 36.4 mmHg (35.0-45.0); ARTERIAL BLOOD GAS pH 7.373 (7.350-7.450)
[2016-09-16 14:03] LABS: ARTERIAL BLOOD GAS ALLEN TEST Y; ARTERIAL BLOOD GAS ART SITE RIGHT RADIAL; ARTERIAL BLOOD GAS DELIVERY VENT; ARTERIAL BLOOD GAS VENT MODE SIMV; ARTERIAL DRAW? YES
[2016-09-17 02:24] LABS: BASOPHIL% 0.3 % (0-2.5); EOSINOPHIL# 0.1 X10e3 (0-0.7); EOSINOPHIL% 0.4 % (0.0-7.0); HEMATOCRIT 23.8 % (35.0-45.0); LYMPHOCYTE% 18.3 % (17.0-45.0); MEAN CELL VOLUME 97.4 FL (83-96); MEAN CORPUSCULAR HEMOGLOBIN 31.3 PG (28-34); MEAN CORPUSCULAR HGB CONC 32.1 g/dL (30-36); MEAN PLATELET VOLUME 9.5 FL (6.5-11.5); MONOCYTE# 1.2 X10e3 (0-1.0); MONOCYTE% 7.3 % (3.0-12.0); NEUTROPHIL% 73.7 % (40-75); PLATELET COUNT 198 X10e3 (140-420); RED BLOOD COUNT 2.45 X10e (3.90-5.30); RED CELL DISTRIBUTION WIDTH 15.2 % (11.0-15.5)
[2016-09-17 02:26] LABS: WHITE BLOOD COUNT 16.2 X10e3 (4.0-10.5)
[2016-09-17 02:27] LABS: HEMOGLOBIN 7.7 gm/dL (12.0-16.0)
[2016-09-17 02:28] LABS: DIFF IND YES
[2016-09-17 02:42] LABS: BUN/CREATININE RATIO 36.8; CALCIUM SERUM 8.3 mg/dL (8.4-10.2); CREATININE SERUM 2.5 mg/dL (0.6-1.4); GLOM FILT RATE Estimated 20.5 mL/min (>60); POTASSIUM 4.8 mmol/L (3.5-5.1)
[2016-09-17 02:43] LABS: PLATELET ESTIMATE NORMAL (NORMAL)
[2016-09-17 05:09] LABS: %MB 3.6 % (0.0-4.0); MB 23.7 ng/ml
[2016-09-17 05:36] LABS: ARTERIAL BLD GAS O2 SATURATION 98.8 % (90.0-100.0); ARTERIAL BLOOD GAS CARBOXY HB 0.2 %sat (0.0-9.0); ARTERIAL BLOOD GAS HCO3 17.5 mmol/L; ARTERIAL BLOOD GAS MET HB 0.9 %sat (0.0-2.0); ARTERIAL BLOOD GAS PCO2 26.5 mmHg (35.0-45.0); ARTERIAL BLOOD GAS pH 7.429 (7.350-7.450)
[2016-09-17 05:39] LABS: ARTERIAL BLOOD GAS ALLEN TEST NORMAL; ARTERIAL BLOOD GAS ART SITE RIGHT RADIAL; ARTERIAL BLOOD GAS VENT MODE AC; ARTERIAL DRAW? YES
[2016-09-17 15:10] LABS: HEMATOCRIT 27.9 % (35.0-45.0); HEMOGLOBIN 9.2 gm/dL (12.0-16.0)
[2016-09-17 20:43] LABS: HEMATOCRIT 25.8 % (35.0-45.0); HEMOGLOBIN 8.3 gm/dL (12.0-16.0)
[2016-09-18 02:07] LABS: BASOPHIL# 0.1 X10e3 (0-0.3); BASOPHIL% 0.4 % (0-2.5); EOSINOPHIL% 0.1 % (0.0-7.0); HEMATOCRIT 25.6 % (35.0-45.0); HEMOGLOBIN 8.4 gm/dL (12.0-16.0); LYMPHOCYTE% 20.6 % (17.0-45.0); MEAN CORPUSCULAR HEMOGLOBIN 30.4 PG (28-34); MEAN CORPUSCULAR HGB CONC 32.8 g/dL (30-36); MEAN PLATELET VOLUME 9.6 FL (6.5-11.5); MONOCYTE% 10.4 % (3.0-12.0); NEUTROPHIL# 20.1 X10e3 (1.5-7.1); NEUTROPHIL% 68.5 % (40-75); PLATELET COUNT 202 X10e3 (140-420); RED BLOOD COUNT 2.76 X10e (3.90-5.30); RED CELL DISTRIBUTION WIDTH 15.9 % (11.0-15.5)
[2016-09-18 02:08] LABS: WHITE BLOOD COUNT 29.3 X10e3 (4.0-10.5)
[2016-09-18 02:10] LABS: MEAN CELL VOLUME 92.8 FL (83-96)
[2016-09-18 02:13] LABS: DIFF IND NO
[2016-09-18 02:27] LABS: INR 1.3; PARTIAL THROMBOPLASTIN TIME 29.1 SECONDS (23.5-31.3)
[2016-09-18 02:39] LABS: ALBUMIN SERUM 2.1 g/dL (3.5-5.0); BILIRUBIN,TOTAL 0.7 mg/dL (0.2-2.0); BUN/CREATININE RATIO 30.93; CALCIUM SERUM 8.1 mg/dL (8.4-10.2); CREATININE SERUM 3.2 mg/dL (0.6-1.4); GLOM FILT RATE Estimated 15.5 mL/min (>60); POTASSIUM 5.3 mmol/L (3.5-5.1); PROTEIN TOTAL SERUM 4.8 g/dL (6.0-8.3)
[2016-09-18 04:45] LABS: ARTERIAL BLD GAS O2 SATURATION 98.9 % (90.0-100.0); ARTERIAL BLOOD GAS CARBOXY HB 0.2 %sat (0.0-9.0); ARTERIAL BLOOD GAS HCO3 22.9 mmol/L; ARTERIAL BLOOD GAS MET HB 0.6 %sat (0.0-2.0); ARTERIAL BLOOD GAS PCO2 35.6 mmHg (35.0-45.0); ARTERIAL BLOOD GAS pH 7.417 (7.350-7.450)
[2016-09-18 05:00] LABS: ARTERIAL BLOOD GAS ALLEN TEST NORMAL; ARTERIAL BLOOD GAS ART SITE RIGHT RADIAL; ARTERIAL BLOOD GAS VENT MODE AC; ARTERIAL DRAW? YES
[2016-09-18 09:08] LABS: BASOPHIL# 0.1 X10e3 (0-0.3); BASOPHIL% 0.2 % (0-2.5); DIFF IND NO; EOSINOPHIL# 0.1 X10e3 (0-0.7); EOSINOPHIL% 0.5 % (0.0-7.0); HEMATOCRIT 24.3 % (35.0-45.0); LYMPHOCYTE# 5.5 X10e3 (1.0-3.5); LYMPHOCYTE% 21.3 % (17.0-45.0); MEAN CELL VOLUME 93.1 FL (83-96); MEAN CORPUSCULAR HEMOGLOBIN 30.6 PG (28-34); MEAN CORPUSCULAR HGB CONC 32.8 g/dL (30-36); MEAN PLATELET VOLUME 9.6 FL (6.5-11.5); MONOCYTE# 2.6 X10e3 (0-1.0); NEUTROPHIL# 17.8 X10e3 (1.5-7.1); PLATELET COUNT 192 X10e3 (140-420); RED BLOOD COUNT 2.61 X10e (3.90-5.30); WHITE BLOOD COUNT 26.1 X10e3 (4.0-10.5)
[2016-09-18 12:21] LABS: URINE APPEARANCE CLOUDY; URINE BILIRUBIN NEG (NEG); URINE BLOOD 3+ (NEG); URINE COLOR DK YELLOW; URINE GLUCOSE NEG (NEG); URINE KETONE NEG (NEG); URINE LEUKOCYTE ESTERASE 1+ (NEG); URINE NITRATE NEG (NEG); URINE PROTEIN TRACE (NEG); URINE SPECIFIC GRAVITY 1.019 (1.003-1.035); URINE UROBILINOGEN 0.2 MG/DL (NEG)
[2016-09-18 12:22] LABS: URINE BACTERIA AUWI NEG (NEGATIVE); URINE SQUAMOUS EPITHELIAL CELL FEW /[HPF]
[2016-09-18 12:24] LABS: CULTURE INDICATED? NO
[2016-09-18 13:53] LABS: MB 47.5 ng/ml
[2016-09-18 14:44] LABS: HEMATOCRIT 21.9 % (35.0-45.0); HEMOGLOBIN 7.2 gm/dL (12.0-16.0)
[2016-09-18 18:36] LABS: BASOPHIL# 0.1 X10e3 (0-0.3); BASOPHIL% 0.4 % (0-2.5); EOSINOPHIL# 0.1 X10e3 (0-0.7); EOSINOPHIL% 0.6 % (0.0-7.0); HEMATOCRIT 22.1 % (35.0-45.0); HEMOGLOBIN 7.1 gm/dL (12.0-16.0); LYMPHOCYTE# 4.6 X10e3 (1.0-3.5); LYMPHOCYTE% 19.5 % (17.0-45.0); MEAN CELL VOLUME 93.5 FL (83-96); MEAN CORPUSCULAR HEMOGLOBIN 30.2 PG (28-34); MEAN CORPUSCULAR HGB CONC 32.3 g/dL (30-36); MONOCYTE# 2.5 X10e3 (0-1.0); MONOCYTE% 10.8 % (3.0-12.0); NEUTROPHIL# 16.1 X10e3 (1.5-7.1); NEUTROPHIL% 68.7 % (40-75); PLATELET COUNT 174 X10e3 (140-420); RED BLOOD COUNT 2.37 X10e (3.90-5.30); RED CELL DISTRIBUTION WIDTH 15.9 % (11.0-15.5); WHITE BLOOD COUNT 23.4 X10e3 (4.0-10.5)
[2016-09-18 18:37] LABS: DIFF IND YES
[2016-09-18 18:52] LABS: CALCIUM SERUM 7.8 mg/dL (8.4-10.2); CREATININE SERUM 3.2 mg/dL (0.6-1.4); GLOM FILT RATE Estimated 15.5 mL/min (>60); POTASSIUM 4.8 mmol/L (3.5-5.1)
[2016-09-18 18:54] LABS: BUN/CREATININE RATIO 31.56
[2016-09-18 19:12] LABS: ANISOCYTOSIS MOD; PLATELET ESTIMATE NORMAL (NORMAL)
[2016-09-19 03:43] LABS: ARTERIAL BLD GAS O2 SATURATION 98.1 % (90.0-100.0); ARTERIAL BLOOD GAS CARBOXY HB 0.6 %sat (0.0-9.0); ARTERIAL BLOOD GAS HCO3 20.9 mmol/L; ARTERIAL BLOOD GAS PCO2 36.6 mmHg (35.0-45.0); ARTERIAL BLOOD GAS pH 7.365 (7.350-7.450)
[2016-09-19 03:51] LABS: ARTERIAL BLOOD GAS ALLEN TEST NORMAL; ARTERIAL BLOOD GAS ART SITE RIGHT RADIAL; ARTERIAL BLOOD GAS DELIVERY VENT; ARTERIAL BLOOD GAS VENT MODE A/C; ARTERIAL DRAW? YES
[2016-09-19 04:48] LABS: BASOPHIL% 0.1 % (0-2.5); EOSINOPHIL# 0.1 X10e3 (0-0.7); EOSINOPHIL% 0.6 % (0.0-7.0); HEMATOCRIT 24.6 % (35.0-45.0); HEMOGLOBIN 8.3 gm/dL (12.0-16.0); LYMPHOCYTE% 14.9 % (17.0-45.0); MEAN CELL VOLUME 92.3 FL (83-96); MEAN CORPUSCULAR HEMOGLOBIN 31.1 PG (28-34); MEAN CORPUSCULAR HGB CONC 33.7 g/dL (30-36); MONOCYTE# 1.8 X10e3 (0-1.0); MONOCYTE% 8.8 % (3.0-12.0); NEUTROPHIL# 15.3 X10e3 (1.5-7.1); NEUTROPHIL% 75.6 % (40-75); PLATELET COUNT 137 X10e3 (140-420); RED BLOOD COUNT 2.66 X10e (3.90-5.30); RED CELL DISTRIBUTION WIDTH 14.9 % (11.0-15.5); WHITE BLOOD COUNT 20.2 X10e3 (4.0-10.5)
[2016-09-19 04:50] LABS: DIFF IND NO
[2016-09-19 05:05] LABS: BILIRUBIN,TOTAL 0.7 mg/dL (0.2-2.0); CALCIUM SERUM 7.8 mg/dL (8.4-10.2); CREATININE SERUM 2.7 mg/dL (0.6-1.4); GLOM FILT RATE Estimated 18.8 mL/min (>60); MAGNESIUM 1.7 mg/dL (1.6-3.0); PHOSPHOROUS 6.3 mg/dL (2.5-4.6); POTASSIUM 4.6 mmol/L (3.5-5.1); PROTEIN TOTAL SERUM 4.5 g/dL (6.0-8.3)
[2016-09-19 05:06] LABS: BUN/CREATININE RATIO 37.77
[2016-09-19 18:15] LABS: HEMATOCRIT 22.9 % (35.0-45.0); HEMOGLOBIN 7.7 gm/dL (12.0-16.0)
[2016-09-20 03:58] LABS: ARTERIAL BLD GAS O2 SATURATION 97.4 % (90.0-100.0); ARTERIAL BLOOD GAS CARBOXY HB 0.6 %sat (0.0-9.0); ARTERIAL BLOOD GAS HCO3 22.9 mmol/L; ARTERIAL BLOOD GAS MET HB 1.3 %sat (0.0-2.0); ARTERIAL BLOOD GAS PCO2 41.3 mmHg (35.0-45.0); ARTERIAL BLOOD GAS pH 7.352 (7.350-7.450)
[2016-09-20 04:11] LABS: ARTERIAL BLOOD GAS ALLEN TEST NORMAL; ARTERIAL BLOOD GAS ART SITE RIGHT RADIAL; ARTERIAL BLOOD GAS DELIVERY VENT; ARTERIAL BLOOD GAS VENT MODE SIMV; ARTERIAL DRAW? YES
[2016-09-20 05:30] LABS: BASOPHIL% 0.2 % (0-2.5); EOSINOPHIL# 0.1 X10e3 (0-0.7); EOSINOPHIL% 0.3 % (0.0-7.0); HEMATOCRIT 28.1 % (35.0-45.0); HEMOGLOBIN 9.3 gm/dL (12.0-16.0); MEAN CELL VOLUME 92.2 FL (83-96); MEAN CORPUSCULAR HEMOGLOBIN 30.6 PG (28-34); MEAN CORPUSCULAR HGB CONC 33.2 g/dL (30-36); MONOCYTE% 6.2 % (3.0-12.0); NEUTROPHIL# 13.6 X10e3 (1.5-7.1); NEUTROPHIL% 81.3 % (40-75); PLATELET COUNT 123 X10e3 (140-420); RED BLOOD COUNT 3.05 X10e (3.90-5.30); RED CELL DISTRIBUTION WIDTH 14.9 % (11.0-15.5); WHITE BLOOD COUNT 16.7 X10e3 (4.0-10.5)
[2016-09-20 05:37] LABS: DIFF IND NO
[2016-09-20 06:22] LABS: ALBUMIN SERUM 1.9 g/dL (3.5-5.0); BILIRUBIN,TOTAL 0.6 mg/dL (0.2-2.0); CALCIUM SERUM 8.6 mg/dL (8.4-10.2); GLOM FILT RATE Estimated 26.6 mL/min (>60); MAGNESIUM 1.6 mg/dL (1.6-3.0); POTASSIUM 4.5 mmol/L (3.5-5.1); PROTEIN TOTAL SERUM 4.8 g/dL (6.0-8.3)
[2016-09-21 04:38] LABS: BASOPHIL% 0.3 % (0-2.5); DIFF IND NO; EOSINOPHIL% 0.2 % (0.0-7.0); HEMATOCRIT 27.7 % (35.0-45.0); HEMOGLOBIN 9.1 gm/dL (12.0-16.0); LYMPHOCYTE# 1.3 X10e3 (1.0-3.5); LYMPHOCYTE% 10.2 % (17.0-45.0); MEAN CELL VOLUME 92.3 FL (83-96); MEAN CORPUSCULAR HEMOGLOBIN 30.4 PG (28-34); MEAN PLATELET VOLUME 8.8 FL (6.5-11.5); MONOCYTE# 0.8 X10e3 (0-1.0); MONOCYTE% 6.4 % (3.0-12.0); NEUTROPHIL# 10.9 X10e3 (1.5-7.1); NEUTROPHIL% 82.9 % (40-75); PLATELET COUNT 107 X10e3 (140-420); WHITE BLOOD COUNT 13.1 X10e3 (4.0-10.5)
[2016-09-21 05:01] LABS: BUN/CREATININE RATIO 53.57; CALCIUM SERUM 8.3 mg/dL (8.4-10.2); CREATININE SERUM 1.4 mg/dL (0.6-1.4); GLOM FILT RATE Estimated 40.1 mL/min (>60); MAGNESIUM 1.5 mg/dL (1.6-3.0); POTASSIUM 4.4 mmol/L (3.5-5.1)
[2016-09-21 09:20] LABS: ARTERIAL BLD GAS O2 SATURATION 98.4 % (90.0-100.0); ARTERIAL BLOOD GAS CARBOXY HB 0.2 %sat (0.0-9.0); ARTERIAL BLOOD GAS HCO3 24.5 mmol/L; ARTERIAL BLOOD GAS MET HB 0.9 %sat (0.0-2.0); ARTERIAL BLOOD GAS PCO2 42.2 mmHg (35.0-45.0); ARTERIAL BLOOD GAS pH 7.372 (7.350-7.450)
[2016-09-21 09:23] LABS: ARTERIAL DRAW? YES
[2016-09-21 09:24] LABS: ARTERIAL BLOOD GAS ART SITE RIGHT RADIAL; ARTERIAL BLOOD GAS DELIVERY VENT; ARTERIAL BLOOD GAS VENT MODE CPAP
[2016-09-21 13:54] LABS: BASOPHIL# 0.1 X10e3 (0-0.3); BASOPHIL% 0.8 % (0-2.5); DIFF IND YES; EOSINOPHIL% 0.1 % (0.0-7.0); HEMATOCRIT 29.3 % (35.0-45.0); HEMOGLOBIN 9.7 gm/dL (12.0-16.0); LYMPHOCYTE# 1.4 X10e3 (1.0-3.5); LYMPHOCYTE% 10.6 % (17.0-45.0); MEAN CELL VOLUME 93.3 FL (83-96); MEAN CORPUSCULAR HGB CONC 33.2 g/dL (30-36); MONOCYTE# 0.8 X10e3 (0-1.0); MONOCYTE% 6.3 % (3.0-12.0); NEUTROPHIL# 10.9 X10e3 (1.5-7.1); NEUTROPHIL% 82.2 % (40-75); PLATELET COUNT 118 X10e3 (140-420); RED BLOOD COUNT 3.14 X10e (3.90-5.30); RED CELL DISTRIBUTION WIDTH 15.1 % (11.0-15.5); WHITE BLOOD COUNT 13.3 X10e3 (4.0-10.5)
[2016-09-21 14:16] LABS: PLATELET ESTIMATE NORMAL (NORMAL); RBC NORMAL YES
[2016-09-22 04:44] LABS: ARTERIAL BLD GAS O2 SATURATION 97.6 % (90.0-100.0); ARTERIAL BLOOD GAS CARBOXY HB 0.4 %sat (0.0-9.0); ARTERIAL BLOOD GAS HCO3 26.5 mmol/L; ARTERIAL BLOOD GAS MET HB 0.8 %sat (0.0-2.0); ARTERIAL BLOOD GAS PCO2 41.8 mmHg (35.0-45.0); ARTERIAL BLOOD GAS pH 7.411 (7.350-7.450)
[2016-09-22 05:08] LABS: BASOPHIL% 0.3 % (0-2.5); EOSINOPHIL% 0.1 % (0.0-7.0); HEMATOCRIT 31.6 % (35.0-45.0); HEMOGLOBIN 10.3 gm/dL (12.0-16.0); LYMPHOCYTE# 1.5 X10e3 (1.0-3.5); LYMPHOCYTE% 10.1 % (17.0-45.0); MEAN CELL VOLUME 92.9 FL (83-96); MEAN CORPUSCULAR HEMOGLOBIN 30.4 PG (28-34); MEAN CORPUSCULAR HGB CONC 32.7 g/dL (30-36); MEAN PLATELET VOLUME 8.9 FL (6.5-11.5); MONOCYTE# 0.9 X10e3 (0-1.0); MONOCYTE% 5.8 % (3.0-12.0); NEUTROPHIL# 12.4 X10e3 (1.5-7.1); NEUTROPHIL% 83.7 % (40-75); PLATELET COUNT 140 X10e3 (140-420); RED CELL DISTRIBUTION WIDTH 14.8 % (11.0-15.5); WHITE BLOOD COUNT 14.9 X10e3 (4.0-10.5)
[2016-09-22 05:16] LABS: ARTERIAL BLOOD GAS ALLEN TEST NORMAL; ARTERIAL BLOOD GAS ART SITE LEFT RADIAL; ARTERIAL BLOOD GAS DELIVERY NASAL CANNULA; ARTERIAL DRAW? YES
[2016-09-22 05:23] LABS: DIFF IND NO
[2016-09-22 06:18] LABS: BUN/CREATININE RATIO 54.16; CALCIUM SERUM 8.9 mg/dL (8.4-10.2); CREATININE SERUM 1.2 mg/dL (0.6-1.4); GLOM FILT RATE Estimated 47.9 mL/min (>60); POTASSIUM 4.3 mmol/L (3.5-5.1)
[2016-09-23 05:17] LABS: BASOPHIL# 0.1 X10e3 (0-0.3); BASOPHIL% 0.4 % (0-2.5); EOSINOPHIL# 0.1 X10e3 (0-0.7); EOSINOPHIL% 0.4 % (0.0-7.0); HEMATOCRIT 30.8 % (35.0-45.0); HEMOGLOBIN 10.2 gm/dL (12.0-16.0); LYMPHOCYTE# 2.2 X10e3 (1.0-3.5); LYMPHOCYTE% 14.5 % (17.0-45.0); MEAN CELL VOLUME 93.1 FL (83-96); MEAN CORPUSCULAR HEMOGLOBIN 30.8 PG (28-34); MEAN CORPUSCULAR HGB CONC 33.1 g/dL (30-36); MEAN PLATELET VOLUME 8.5 FL (6.5-11.5); MONOCYTE# 1.2 X10e3 (0-1.0); MONOCYTE% 8.2 % (3.0-12.0); NEUTROPHIL# 11.5 X10e3 (1.5-7.1); NEUTROPHIL% 76.5 % (40-75); PLATELET COUNT 156 X10e3 (140-420); RED BLOOD COUNT 3.31 X10e (3.90-5.30); RED CELL DISTRIBUTION WIDTH 14.6 % (11.0-15.5)
[2016-09-23 05:32] LABS: DIFF IND NO
[2016-09-23 06:11] LABS: BLOOD UREA NITROGEN 55 mg/dL (9-23); BUN/CREATININE RATIO 61.11; CALCIUM SERUM 9.2 mg/dL (8.4-10.2); CARBON DIOXIDE 29 mmol/L (22-31); CHLORIDE 108 mmol/L (100-111); CREATININE SERUM 0.9 mg/dL (0.6-1.4); GLOM FILT RATE Estimated ABOVE60 mL/min (>60); GLUCOSE FASTING 96 mg/dL (70-110); POTASSIUM 4.1 mmol/L (3.5-5.1); SODIUM 144 mmol/L (135-145)
[2016-09-23 15:16] LABS: HEMATOCRIT 28.8 % (35.0-45.0); HEMOGLOBIN 9.7 gm/dL (12.0-16.0); MEAN CELL VOLUME 91.8 FL (83-96); MEAN CORPUSCULAR HGB CONC 33.7 g/dL (30-36); MEAN PLATELET VOLUME 8.4 FL (6.5-11.5); RED BLOOD COUNT 3.13 X10e (3.90-5.30); RED CELL DISTRIBUTION WIDTH 14.5 % (11.0-15.5); WHITE BLOOD COUNT 17.5 X10e3 (4.0-10.5)
[2016-09-24 06:39] LABS: HEMATOCRIT 25.7 % (35.0-45.0); HEMOGLOBIN 8.5 gm/dL (12.0-16.0); MEAN CELL VOLUME 92.8 FL (83-96); MEAN CORPUSCULAR HEMOGLOBIN 30.6 PG (28-34); MEAN CORPUSCULAR HGB CONC 32.9 g/dL (30-36); MEAN PLATELET VOLUME 8.6 FL (6.5-11.5); RED BLOOD COUNT 2.77 X10e (3.90-5.30); RED CELL DISTRIBUTION WIDTH 14.2 % (11.0-15.5); WHITE BLOOD COUNT 18.3 X10e3 (4.0-10.5)
[2016-09-24 07:07] LABS: ALBUMIN SERUM 2.2 g/dL (3.5-5.0); ALKALINE PHOSPHATASE 66 U/L (32-92); ALT (SGPT) 82 U/L (10-40); AST (SGOT) 52 U/L (10-42); BLOOD UREA NITROGEN 48 mg/dL (9-23); BUN/CREATININE RATIO 53.33; CALCIUM SERUM 8.8 mg/dL (8.4-10.2); CARBON DIOXIDE 31 mmol/L (22-31); CHLORIDE 107 mmol/L (100-111); CREATININE SERUM 0.9 mg/dL (0.6-1.4); GLOM FILT RATE Estimated ABOVE60 mL/min (>60); GLUCOSE FASTING 107 mg/dL (70-110); POTASSIUM 3.9 mmol/L (3.5-5.1); PROTEIN TOTAL SERUM 5.4 g/dL (6.0-8.3); SODIUM 146 mmol/L (135-145)
[2016-09-25 07:20] LABS: HEMATOCRIT 22.6 % (35.0-45.0); HEMOGLOBIN 7.5 gm/dL (12.0-16.0); MEAN CELL VOLUME 93.7 FL (83-96); MEAN CORPUSCULAR HEMOGLOBIN 31.1 PG (28-34); MEAN CORPUSCULAR HGB CONC 33.2 g/dL (30-36); MEAN PLATELET VOLUME 8.9 FL (6.5-11.5); RED BLOOD COUNT 2.41 X10e (3.90-5.30); RED CELL DISTRIBUTION WIDTH 14.1 % (11.0-15.5); WHITE BLOOD COUNT 17.3 X10e3 (4.0-10.5)
[2016-09-25 07:54] LABS: CALCIUM SERUM 8.7 mg/dL (8.4-10.2); GLOM FILT RATE Estimated 59.1 mL/min (>60); MAGNESIUM 1.5 mg/dL (1.6-3.0); POTASSIUM 3.8 mmol/L (3.5-5.1)
[2016-09-26 05:34] LABS: HEMATOCRIT 26.7 % (35.0-45.0); HEMOGLOBIN 8.9 gm/dL (12.0-16.0); MEAN CELL VOLUME 91.9 FL (83-96); MEAN CORPUSCULAR HEMOGLOBIN 30.6 PG (28-34); MEAN CORPUSCULAR HGB CONC 33.3 g/dL (30-36); MEAN PLATELET VOLUME 8.7 FL (6.5-11.5); RED BLOOD COUNT 2.9 X10e (3.90-5.30); RED CELL DISTRIBUTION WIDTH 15.4 % (11.0-15.5); WHITE BLOOD COUNT 16.1 X10e3 (4.0-10.5)
[2016-09-26 06:50] LABS: BLOOD UREA NITROGEN 49 mg/dL (9-23); BUN/CREATININE RATIO 54.44; CALCIUM SERUM 8.3 mg/dL (8.4-10.2); CARBON DIOXIDE 32 mmol/L (22-31); CHLORIDE 106 mmol/L (100-111); CREATININE SERUM 0.9 mg/dL (0.6-1.4); GLOM FILT RATE Estimated ABOVE60 mL/min (>60); GLUCOSE FASTING 87 mg/dL (70-110); MAGNESIUM 1.7 mg/dL (1.6-3.0); POTASSIUM 3.8 mmol/L (3.5-5.1); SODIUM 145 mmol/L (135-145)
[2016-09-27 05:43] LABS: HEMATOCRIT 27.3 % (35.0-45.0); HEMOGLOBIN 9.1 gm/dL (12.0-16.0); MEAN CELL VOLUME 92.5 FL (83-96); MEAN CORPUSCULAR HEMOGLOBIN 30.7 PG (28-34); MEAN CORPUSCULAR HGB CONC 33.3 g/dL (30-36); MEAN PLATELET VOLUME 8.5 FL (6.5-11.5); RED BLOOD COUNT 2.95 X10e (3.90-5.30); WHITE BLOOD COUNT 14.3 X10e3 (4.0-10.5)
[2016-09-27 06:02] LABS: BLOOD UREA NITROGEN 38 mg/dL (9-23); CALCIUM SERUM 8.1 mg/dL (8.4-10.2); CARBON DIOXIDE 30 mmol/L (22-31); CHLORIDE 101 mmol/L (100-111); CREATININE SERUM 0.8 mg/dL (0.6-1.4); GLOM FILT RATE Estimated ABOVE60 mL/min (>60); GLUCOSE FASTING 90 mg/dL (70-110); POTASSIUM 3.7 mmol/L (3.5-5.1); SODIUM 138 mmol/L (135-145)
[2016-09-28 05:31] LABS: HEMATOCRIT 25.6 % (35.0-45.0); HEMOGLOBIN 8.6 gm/dL (12.0-16.0); MEAN CELL VOLUME 92.7 FL (83-96); MEAN CORPUSCULAR HEMOGLOBIN 31.2 PG (28-34); MEAN CORPUSCULAR HGB CONC 33.7 g/dL (30-36); MEAN PLATELET VOLUME 8.5 FL (6.5-11.5); RED BLOOD COUNT 2.76 X10e (3.90-5.30); RED CELL DISTRIBUTION WIDTH 15.4 % (11.0-15.5)
[2016-09-28 06:15] LABS: ALBUMIN SERUM 1.9 g/dL (3.5-5.0); ALKALINE PHOSPHATASE 70 U/L (32-92); ALT (SGPT) 58 U/L (10-40); AST (SGOT) 40 U/L (10-42); BILIRUBIN,TOTAL 0.8 mg/dL (0.2-2.0); BLOOD UREA NITROGEN 30 mg/dL (9-23); BUN/CREATININE RATIO 33.33; CALCIUM SERUM 8.1 mg/dL (8.4-10.2); CARBON DIOXIDE 28 mmol/L (22-31); CHLORIDE 102 mmol/L (100-111); CREATININE SERUM 0.9 mg/dL (0.6-1.4); GLOM FILT RATE Estimated ABOVE60 mL/min (>60); GLUCOSE FASTING 96 mg/dL (70-110); POTASSIUM 3.5 mmol/L (3.5-5.1); PROTEIN TOTAL SERUM 5.2 g/dL (6.0-8.3); SODIUM 140 mmol/L (135-145)
[2016-09-29 07:59] LABS: HEMATOCRIT 26.3 % (35.0-45.0); HEMOGLOBIN 8.6 gm/dL (12.0-16.0); MEAN CELL VOLUME 93.5 FL (83-96); MEAN CORPUSCULAR HEMOGLOBIN 30.5 PG (28-34); MEAN CORPUSCULAR HGB CONC 32.7 g/dL (30-36); MEAN PLATELET VOLUME 8.4 FL (6.5-11.5); RED BLOOD COUNT 2.82 X10e (3.90-5.30); RED CELL DISTRIBUTION WIDTH 15.4 % (11.0-15.5); WHITE BLOOD COUNT 7.5 X10e3 (4.0-10.5)
[2016-09-29 08:36] LABS: ALBUMIN SERUM 1.9 g/dL (3.5-5.0); ALKALINE PHOSPHATASE 69 U/L (32-92); ALT (SGPT) 51 U/L (10-40); AST (SGOT) 38 U/L (10-42); BILIRUBIN,TOTAL 1.1 mg/dL (0.2-2.0); BLOOD UREA NITROGEN 21 mg/dL (9-23); CALCIUM SERUM 7.9 mg/dL (8.4-10.2); CARBON DIOXIDE 26 mmol/L (22-31); CHLORIDE 105 mmol/L (100-111); CREATININE SERUM 0.7 mg/dL (0.6-1.4); GLOM FILT RATE Estimated ABOVE60 mL/min (>60); GLUCOSE FASTING 77 mg/dL (70-110); POTASSIUM 3.8 mmol/L (3.5-5.1); SODIUM 141 mmol/L (135-145)
[2016-09-30 06:36] LABS: HEMATOCRIT 27.9 % (35.0-45.0); HEMOGLOBIN 9.1 gm/dL (12.0-16.0); MEAN CELL VOLUME 92.9 FL (83-96); MEAN CORPUSCULAR HEMOGLOBIN 30.3 PG (28-34); MEAN CORPUSCULAR HGB CONC 32.7 g/dL (30-36); MEAN PLATELET VOLUME 7.9 FL (6.5-11.5); RED CELL DISTRIBUTION WIDTH 15.1 % (11.0-15.5); WHITE BLOOD COUNT 6.3 X10e3 (4.0-10.5)
[2016-09-30 07:32] LABS: BLOOD UREA NITROGEN 16 mg/dL (9-23); BUN/CREATININE RATIO 22.85; CALCIUM SERUM 8.2 mg/dL (8.4-10.2); CARBON DIOXIDE 27 mmol/L (22-31); CHLORIDE 102 mmol/L (100-111); CREATININE SERUM 0.7 mg/dL (0.6-1.4); GLOM FILT RATE Estimated ABOVE60 mL/min (>60); GLUCOSE FASTING 78 mg/dL (70-110); SODIUM 138 mmol/L (135-145)
[2016-10-01 05:52] LABS: HEMATOCRIT 27.1 % (35.0-45.0); MEAN CORPUSCULAR HEMOGLOBIN 30.5 PG (28-34); MEAN CORPUSCULAR HGB CONC 33.1 g/dL (30-36); MEAN PLATELET VOLUME 8.2 FL (6.5-11.5); RED BLOOD COUNT 2.94 X10e (3.90-5.30); RED CELL DISTRIBUTION WIDTH 15.3 % (11.0-15.5)
[2016-10-01 06:37] LABS: BLOOD UREA NITROGEN 15 mg/dL (9-23); CALCIUM SERUM 8.2 mg/dL (8.4-10.2); CARBON DIOXIDE 25 mmol/L (22-31); CHLORIDE 103 mmol/L (100-111); CREATININE SERUM 0.6 mg/dL (0.6-1.4); GLOM FILT RATE Estimated ABOVE60 mL/min (>60); GLUCOSE FASTING 83 mg/dL (70-110); POTASSIUM 3.6 mmol/L (3.5-5.1); SODIUM 137 mmol/L (135-145)
== END 2016-10-01 12:15 | DRG 853 ==
LOC: CED 20:46 → CEDOF 21:50 → CICCU2 23:10 → C5B 09-22 23:44
PROVIDERS: Emergency Medicine; Internal Medicine; Internal Medicine Cardiovascular Disease; Internal Medicine Nephrology; Internal Medicine Pulmonary Disease; Nurse Practitioner; Nurse Practitioner Family; Surgery
PROC: 0JB90ZZ Excision of Buttock Subcutaneous Tissue and Fascia, Open Approach (ICD-10-PCS; 2016-09-12)
PROC: 30233J1 Transfusion of Nonautologous Serum Albumin into Peripheral Vein, Percutaneous Approach (ICD-10-PCS; 2016-09-12)
PROC: 0DH67UZ Insertion of Feeding Device into Stomach, Via Natural or Artificial Opening (ICD-10-PCS; 2016-09-13)
PROC: 5A1955Z Respiratory Ventilation, Greater than 96 Consecutive Hours (ICD-10-PCS; 2016-09-13)
PROC: 0BH17EZ Insertion of Endotracheal Airway into Trachea, Via Natural or Artificial Opening (ICD-10-PCS; 2016-09-13)
PROC: 30233N1 Transfusion of Nonautologous Red Blood Cells into Peripheral Vein, Percutaneous Approach (ICD-10-PCS; principal; 2016-09-17)
PROC: 0JB90ZZ Excision of Buttock Subcutaneous Tissue and Fascia, Open Approach (ICD-10-PCS; 2016-09-27)
PROC: 0JB70ZZ Excision of Back Subcutaneous Tissue and Fascia, Open Approach (ICD-10-PCS; 2016-09-27)
PROC: 0DJ08ZZ Inspection of Upper Intestinal Tract, Via Natural or Artificial Opening Endoscopic (ICD-10-PCS; 2016-09-29)
PROC: 0DBM8ZX Excision of Descending Colon, Via Natural or Artificial Opening Endoscopic, Diagnostic (ICD-10-PCS; 2016-09-29)
PROC: 3E0234Z Introduction of Serum, Toxoid and Vaccine into Muscle, Percutaneous Approach (ICD-10-PCS; 2016-10-01)
PROC: 3E0234Z Introduction of Serum, Toxoid and Vaccine into Muscle, Percutaneous Approach (ICD-10-PCS; 2016-10-01)
PROC: B246YZZ Ultrasonography of Right and Left Heart using Other Contrast (ICD-10-PCS; 2016-10-01)
DX: A41.9 Sepsis, unspecified organism (principal); N17.0 Acute kidney failure with tubular necrosis; J96.01 Acute respiratory failure with hypoxia; I21.4 Non-ST elevation (NSTEMI) myocardial infarction; G92 Toxic encephalopathy; L89.153 Pressure ulcer of sacral region, stage 3; A04.7 Enterocolitis due to Clostridium difficile; I82.402 Acute embolism and thrombosis of unspecified deep veins of left lower extremity; E87.0 Hyperosmolality and hypernatremia; L89.303 Pressure ulcer of unspecified buttock, stage 3; E87.2 Acidosis; M62.82 Rhabdomyolysis; D62 Acute posthemorrhagic anemia; Z68.42 Body mass index [BMI] 45.0-49.9, adult; E87.1 Hypo-osmolality and hyponatremia; Z23 Encounter for immunization; E86.0 Dehydration; E03.9 Hypothyroidism, unspecified; R68.0 Hypothermia, not associated with low environmental temperature; E66.01 Morbid (severe) obesity due to excess calories; I10 Essential (primary) hypertension; Z87.891 Personal history of nicotine dependence; I48.91 Unspecified atrial fibrillation; I35.0 Nonrheumatic aortic (valve) stenosis; E87.6 Hypokalemia; K20.9 Esophagitis, unspecified; K44.9 Diaphragmatic hernia without obstruction or gangrene; K57.30 Diverticulosis of large intestine without perforation or abscess without bleeding; K80.20 Calculus of gallbladder without cholecystitis without obstruction
CPT/HCPCS: 36415; 36600; 51702; 70450; 71010; 74000; 74176; 76705; 76937; 80048; 80053; 80061; 80076; 80202; 80307; 81003; 82140; 82150; 82274; 82308; 82533; 82550; 82553; 82570; 82803; 82947; 83605; 83690; 83735; 83880; 84100; 84132; 84156; 84300; 84439; 84443; 84484; 85014; 85018; 85025; 85027; 85610; 85652; 85730; 86850; 86900; 86901; 86923; 87040; 87045; 87070; 87177; 87205; 87209; 87427; 87493; 87899; 88305; 88341; 88342; 90688; 90732; 92526; 92610; 93005; 93306; 93970; 94002; 94003; 94760; 94761; 96360; 96361; 97110; 97163; 97167; 97168; 97530; 97535; 99285; C1751; C9113; G0009; G0480; G8978-GP; G8979-GP; G8987-GO; G8988-GO; G8996-GN; G8997-GN; G8998-GN; J0833; J1100; J1160; J1450; J1642; J1650; J2020; J2185; J2250; J2270; J2370; J2405; J2543; J3010; J3370; J3475; J3490; P9016; P9047